=== PATIENT | female | born 1970 | race Caucasian/White ===

== ENCOUNTER 2020-04-21 17:39 | Inpatient (IN) | payer OTHER ==
[~2020-04-21] VITALS: Ht 170.2 cm; Wt 84.0 kg
--- NOTE | 2020-04-21 18:21 | PHYS DOC ---
Past Medical History Past Medical History: A-Fib Past Surgical History: Appendectomy Smoking Status: Never Smoker Alcohol Use: None General Adult EDM: Chief Complaint: CHEST PAIN HPI: HPI: The history was obtained from the patient. Patient is a 49-year-old female with PMH atrial fibrillation, hypertension, anxiety who presents with a chief complaint of shortness of breath. Patient states she has had intermittent chest pain and shortness of breath over the past week. She states that she seems to notice the shortness of breath and chest pain with exertion. She states it seems to improve with rest. She notes a history of atrial fibrillation. She is unsure whether this is paroxysmal or not. She states that the only medicine she takes daily as Bystolic. She denies any missed doses. She does not take any blood thinners. She states that she feels intermittently lightheaded. She does note that she feels lower heart is beating quickly. She denies any syncope. She denies any history of coronary artery disease or invasive cardiac testing. Denies any history of cardiac disease in her family at young age. She denies alcohol or drug abuse. Denies any tobacco abuse. States the chest pain feels like a heaviness. She states it tends to last 10 to 15 minutes and resolved on its own. Patient denies any history of immobilization greater than 48 hours, recent hospitalizations, recent surgery, recent trauma, , oral contraceptive usage, hormone replacement therapy, air travel greater than 8 hours, recent infectious disease, or general deterioration of their overall condition. Review of Systems: Review of Systems: Constitutional: Denies fever or chills. [] Eyes: Denies change in visual acuity. [] HENT: Denies nasal congestion or sore throat. [] Respiratory: Positive shortness of breath Cardiovascular: Positive for lightheadedness, arrhythmia, chest pain GI: Denies abdominal pain, nausea, vomiting, bloody stools or diarrhea. [] : Denies dysuria. [] Musculoskeletal: Denies back pain or joint pain. [] Integument: Denies rash. [] Neurologic: Denies headache, focal weakness or sensory changes. [] Endocrine: Denies polyuria or polydipsia. [] Lymphatic: Denies swollen glands. [] Psychiatric: Denies depression or anxiety. [] Heart Score: HEART Score for Chest Pain: HEART Score for Chest Pain Response (Comments) Value History Moderately Suspicious 1 ECG Nonspecific Repolarizatio 1 Age >45 - < 65 1 Risk Factors 1 or 2 Risk Factors 1 Troponin < Normal Limit 0 Total 4 Risk Factors: Risk Factors: DM, Current or recent (<one month) smoker, HTN, HLP, family history of CAD, obesity. Risk Scores: Score 0 - 3: 2.5% MACE over next 6 weeks - Discharge Home Score 4 - 6: 20.3% MACE over next 6 weeks - Admit for Clinical Observation Score 7 - 10: 72.7% MACE over next 6 weeks - Early Invasive Strategies Current Medications: Current Medications Medications (Trade) Dose Ordered Sig/Chuck Start Time Stop Time Status Last Admin Dose Admin Metoprolol Tartrate (Lopressor Vial) 5 mg 1X ONCE 04/21/20 18:15 04/21/20 18:16 UNV Sodium Chloride 1,000 ml @ 1,000 mls/hr Q1H 04/21/20 18:05 04/21/20 19:04 UNV Physical Exam: PE: Constitutional: Well developed, well nourished, no acute distress, non-toxic appearance. [] HENT: Normocephalic, atraumatic, bilateral external ears normal, oropharynx moist, no oral exudates, nose normal. [] Eyes: PERRLA, EOMI, conjunctiva normal, no discharge. [] Neck: Normal range of motion, no tenderness, supple, no stridor. [] Cardiovascular:Heart rate regular rhythm, no murmur [] Lungs & Thorax: Bilateral breath sounds clear to auscultation [] Abdomen: Bowel sounds normal, soft, no tenderness, no masses, no pulsatile masses. [] Skin: Warm, dry, no erythema, no rash. [] Back: No tenderness, no CVA tenderness. [] Extremities: No tenderness, no cyanosis, no clubbing, ROM intact, no edema. [] Neurologic: Alert and oriented X 3, normal motor function, normal sensory function, no focal deficits noted. [] Psychologic: Affect normal, judgement normal, mood normal. [] Current Patient Data: Labs: Laboratory Tests Test 04/21/20 18:15 White Blood Count 4.5 x10^3/uL Red Blood Count 4.84 x10^6/uL Hemoglobin 16.6 g/dL Hematocrit 47.1 % Mean Corpuscular Volume 97 fL Mean Corpuscular Hemoglobin 34 pg Mean Corpuscular Hemoglobin Concent 35 g/dL Red Cell Distribution Width 12.9 % Platelet Count 171 x10^3/uL Neutrophils (%) (Auto) 42 % Lymphocytes (%) (Auto) 45 % Monocytes (%) (Auto) 9 % Eosinophils (%) (Auto) 3 % Basophils (%) (Auto) 2 % Neutrophils # (Auto) 1.9 x10^3/uL Lymphocytes # (Auto) 2.0 x10^3/uL Monocytes # (Auto) 0.4 x10^3/uL Eosinophils # (Auto) 0.1 x10^3/uL Basophils # (Auto) 0.1 x10^3/uL Sodium Level 143 mmol/L Potassium Level 3.4 mmol/L Chloride Level 104 mmol/L Carbon Dioxide Level 21 mmol/L Anion Gap 18 Blood Urea Nitrogen 6 mg/dL Creatinine 0.7 mg/dL Estimated GFR (Cockcroft-Gault) 88.9 Glucose Level 112 mg/dL Calcium Level 9.1 mg/dL Troponin I Quantitative < 0.017 ng/mL [id number]-Type Natriuretic Peptide 21 pg/mL Thyroid Stimulating Hormone (TSH) 2.936 uIU/mL Ethyl Alcohol Level 381 mg/dL Current Medications Medications (Trade) Dose Ordered Sig/Chuck Route PRN Reason Start Time Stop Time Status Last Admin Dose Admin Metoprolol Tartrate (Lopressor Vial) 5 mg 1X ONCE IVP 04/21/20 18:35 04/21/20 18:36 DC 04/21/20 18:46 Sodium Chloride 1,000 ml @ 1,000 mls/hr Q1H IV 04/21/20 18:35 04/21/20 19:34 DC 04/21/20 18:45 Metoprolol Tartrate (Lopressor Vial) 5 mg 1X ONCE IVP 04/21/20 19:00 04/21/20 19:01 DC 04/21/20 19:11 Metoprolol Tartrate (Lopressor Vial) 5 mg 1X ONCE IVP 04/21/20 20:00 04/21/20 20:01 DC Thiamine HCl 100 mg/Dextrose 51 ml @ 102 mls/hr QHS IV 04/21/20 21:00 Folic Acid (Folic Acid) 1 mg QHS PO 04/21/20 21:00 Aspirin (Aspirin Chewable) 324 mg 1X ONCE PO 04/21/20 20:30 04/21/20 20:31 04/21/20 20:14 Telavancin 750 mg/ Sodium Chloride 150 ml @ 100 mls/hr 1X ONCE IV 04/21/20 20:15 04/21/20 20:25 DC Ondansetron HCl (Zofran) 4 mg PRN Q8HRS PRN IV NAUSEA/VOMITING 04/21/20 20:30 04/22/20 20:29 Sodium Chloride 1,000 ml @ 100 mls/hr Q10H IV 04/21/20 20:19 04/22/20 20:18 Acetaminophen (Tylenol) 650 mg PRN Q4HRS PRN PO FEVER > 100.3'F 04/21/20 20:30 04/22/20 20:29 Sodium Chloride 1,000 ml @ 100 mls/hr 1X ONCE IV 04/21/20 20:30 04/22/20 06:29 Vital Signs: Vital Signs Date Time Temp Pulse Resp B/P (MAP) Pulse Ox O2 Delivery O2 Flow Rate FiO2 04/21/20 17:40 98.7 92 24 139/70 (93) 97 Room Air 98.7 EKG: EKG: EKG consistent with atrial fibrillation with rapid ventricular response. Ventricular rate of 148 bpm. Left axis noted. QTc 454 ms. No acute ischemic changes appreciated. No previous EKG for comparison. [] Radiology/Procedures: Radiology/Procedures: [facility] [address] [place] [address] IMAGING REPORT Signed PATIENT: BOGDAN LOJA LACCOUNT: [id number] : 1970 LOCATION: ER AGE: 49 SEX: F EXAM STATUS: REG ER ORD. PHYSICIAN: LAMINE VELA DO REASON: Chest pain PROCEDURE: PORTABLE CHEST 1V Exam: Chest one view INDICATION: Chest pain TECHNIQUE: Frontal view of the chest Comparisons: None FINDINGS: The cardiomediastinal silhouette and pulmonary vessels are within normal limits. Hazy opacity at the left lung base. No pleural effusion. IMPRESSION: Hazy opacity left lung base may represent effusion, atelectasis and/or pneumonia. Electronically signed by: Brandin Pichardo MD (04/21/2020 6:54 PM) [id number] DICTATED and SIGNED BY: BRANDIN PICHARDO MD DATE: 04/21/201853 [] Course & Med Decision Making: Course & Med Decision Making Pertinent Labs and Imaging studies reviewed. (See chart for details) Patient is a 49-year-old female who presents with chief complaint of shortness of breath and exertional chest pain over the past week. Initial vital signs notable for tachycardia. EKG consistent with atrial fibrillation with RVR. Isabel cortney does report a remote history of this. Based on her medication list she does not take any rate controlling medications or blood thinners routinely. Basic labs were obtained. Patient does have an elevated alcohol level of approximately 300. Slightly elevated hemoglobin. Likely related to dehydration. This is likely the cause of her irregular heartbeat. She was given IV fluids. Initial high-sensitivity troponin negative. TSH unremarkable. Remainder of labs unremarkable. Chest x-ray did show a potential left lower lobe infiltrate. She denies any infectious symptoms including fever, cough, or productive sputum. Antibiotics will be deferred. Her heart rate did improve from approximate 120-100 with 2 doses of 5 mg of metoprolol. She was given full dose aspirin. Anticoagulation will be deferred from the emergency department given the patient likely does not experience chronic atrial fibrillation and this is most likely paroxysmal nature due to dehydration. Patient is agreeable for hospitalization for further work-up of her exertional chest pain. She has remained chest pain-free while in the emergency department. She was started on thiamine and folic acid. Signout given to Dr. Pyle. Hitesh Disclaimer: Hitesh Disclaimer: This electronic medical record was generated, in whole or in part, using a voice recognition dictation system. Departure Departure Disposition: ADMITTED INPATIENT Condition: GOOD Justicifation of Admission Dx: Justifications for Admission: Justification of Admission Dx: Yes Comments: Atrial fibrillation with rapid ventricular response, alcohol intoxication, exertional chest pain, hypertension, dehydration LAMINE VELA DO Apr 21, 2020 18:21
[2020-04-21 18:27] LABS: BASO # 0.1 x10^3/uL (0.0-0.2); BASO % 2 % (0-3); EOS # 0.1 x10^3/uL (0.0-0.7); EOS % 3 % (0-3); HEMATOCRIT 47.1 % (36.0-47.0); HEMOGLOBIN 16.6 g/dL (12.0-15.5); LYMPH % 45 % (24-48); MEAN CORPUSCULAR HEMOGLOBIN 34 pg (25-35); MEAN CORPUSCULAR HGB CONC 35 g/dL (31-37); MEAN CORPUSCULAR VOLUME 97 fL (79-100); MONO # 0.4 x10^3/uL (0.0-1.1); MONO % 9 % (0-9); NEUT # 1.9 x10^3/uL (1.8-7.7); NEUT % 42 % (31-73); PLATELET COUNT 171 x10^3/uL (140-400); RED BLOOD COUNT 4.84 x10^6/uL (3.50-5.40); RED CELL DISTRIBUTION WIDTH 12.9 % (11.5-14.5); WHITE BLOOD COUNT 4.5 x10^3/uL (4.0-11.0)
[2020-04-21 18:34] LABS: CALCIUM 9.1 mg/dL (8.5-10.1); CREATININE 0.7 mg/dL (0.6-1.0); GFR 88.9; POTASSIUM 3.4 mmol/L (3.5-5.1)
[2020-04-21] MEDS ORDERED: IV NORMAL SALINE 1000ML BAG 1,000 ML IV SCH (18:35)
[2020-04-21] MEDS ORDERED: METOPROLOL TARTRATE 5 MG/5 ML VIAL. IVP ONE ×3 (18:35→20:00)
--- NOTE | 2020-04-21 18:57 | RAD ---
Exam: Chest one view INDICATION: Chest pain TECHNIQUE: Frontal view of the chest Comparisons: None FINDINGS: The cardiomediastinal silhouette and pulmonary vessels are within normal limits. Hazy opacity at the left lung base. No pleural effusion. IMPRESSION: Hazy opacity left lung base may represent effusion, atelectasis and/or pneumonia. Electronically signed by: Brandin Dominique MD (04/21/2020 6:54 PM) [id number]
[2020-04-21] MEDS ORDERED: NORMAL SALINE IV ONE (20:15)
[2020-04-21] MEDS ORDERED: TELAVANCIN HCL IV ONE (20:15)
[2020-04-21] MEDS ORDERED: IV NORMAL SALINE 1000ML BAG 1,000 ML IV ONE (20:30)
[2020-04-21] MEDS ORDERED: ASPIRIN CHEWABLE 81 MG TABLET. PO ONE (20:30)
[2020-04-21] MEDS ORDERED: ACETAMINOPHEN 325 MG TABLET. PO PRN (20:30)
[2020-04-21] MEDS ORDERED: ONDANSETRON PF 4 MG/2 ML VIAL. IV PRN (20:30)
[2020-04-21] MEDS: IV NORMAL SALINE 1000ML BAG 1,000 ML IV SCH (20:31)
[2020-04-21] MEDS ORDERED: FOLIC ACID 1 MG TABLET. PO SCH (21:00)
[2020-04-21] MEDS ORDERED: THIAMINE INJ 100 MG in IV DEXTROSE 5% 50 ML IV SCH (21:00)
[2020-04-21 21:30] VITALS: BP 142/82
[2020-04-21] MEDS ORDERED: BYSTOLIC5 MG PO (21:50)
[2020-04-21] MEDS ORDERED: POLYVINYL ALCOHOL 1.4% OPHTH SOLUTION 15ML BOTTLE. OU PRN (22:30)
[2020-04-21] MEDS ORDERED: IBUPROFEN 400 MG TABLET. PO PRN (22:45)
[2020-04-21 23:00] VITALS: BP 142/82
[2020-04-21] MEDS ORDERED: ZOLPIDEM 5 MG TABLET. PO PRN (23:45)
[2020-04-22 02:58] VITALS: BP 129/66
--- NOTE | 2020-04-22 03:03 | EKG ---
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
[2020-04-22 03:12] LABS: BASO # 0.1 x10^3/uL (0.0-0.2); BASO % 2 % (0-3); EOS # 0.2 x10^3/uL (0.0-0.7); EOS % 4 % (0-3); HEMATOCRIT 44.2 % (36.0-47.0); LYMPH # 1.4 x10^3/uL (1.0-4.8); LYMPH % 35 % (24-48); MEAN CORPUSCULAR HEMOGLOBIN 33 pg (25-35); MEAN CORPUSCULAR HGB CONC 34 g/dL (31-37); MEAN CORPUSCULAR VOLUME 98 fL (79-100); MONO # 0.4 x10^3/uL (0.0-1.1); MONO % 9 % (0-9); NEUT # 2.1 x10^3/uL (1.8-7.7); NEUT % 50 % (31-73); PLATELET COUNT 134 x10^3/uL (140-400); RED CELL DISTRIBUTION WIDTH 13.2 % (11.5-14.5); WHITE BLOOD COUNT 4.2 x10^3/uL (4.0-11.0)
[2020-04-22 07:00] VITALS: BP 146/88
--- NOTE | 2020-04-22 07:58 | PDOC1 ---
History and Physical Date of Admission: Date of Admission DATE: 04/22/20 TIME: 07:51 Chief Complaint: Chief Complain: Chest pain History of Present Illness: HPI: 49-year-old male with past medical history of atrial fibrillation, hypertension, anxiety who comes in with complaints of shortness of breath and chest pain. Patient states that she was at home when she began to have symptoms while she wa s getting her mail. Patient reports left-sided chest pain that radiates towards the left shoulder with scale of 8 out of 10, patient pain will last about 10 to 15 minutes and resolved on its own. There are no alleviating factors. Patient does deal with a history of anxiety but she does not take any medications for this. She has been counseled on meditation and relaxation techniques. She denies any syncope. She denies any history of coronary artery disease or invasive cardiac testing. Denies any history of cardiac disease in her family at young age. She denies alcohol or drug abuse. Denies any tobacco abuse. States the chest pain feels like a heaviness. She states it tends to last 10 to 15 minutes and resolved on its own. Patient denies any history of immobilization greater than 48 hours, recent hospitalizations, recent surgery, recent trauma, , oral contraceptive usage, hormone replacement therapy, air travel greater than 8 hours, recent infectious disease, or general deterioration of their overall condition. Past Medical/Surgical History: PMH/PSH: Past Medical History: A-Fib Past Surgical History: Appendectomy Allergies: Allergies: Coded Allergies: No Known Drug Allergies (Unverified , 04/21/20) Family History: Family History: Reviewed and none reported Social History: Social History: Smoking Status: Never Smoker Alcohol Use: None Current Medications: Current Medications Current Medications Metoprolol Tartrate (Lopressor Vial) 5 mg 1X ONCE IVP Last administered on 04/21/20at 18:46; Start 04/21/20 at 18:35; Stop 04/21/20 at 18:36; Status DC Sodium Chloride 1,000 ml @ 1,000 mls/hr Q1H IV Last administered on 04/21/20at 18:45; Start 04/21/20 at 18:35; Stop 04/21/20 at 19:34; Status DC Metoprolol Tartrate (Lopressor Vial) 5 mg 1X ONCE IVP Last administered on 04/21/20at 19:11; Start 04/21/20 at 19:00; Stop 04/21/20 at 19:01; Status DC Metoprolol Tartrate (Lopressor Vial) 5 mg 1X ONCE IVP ; Start 04/21/20 at 20:00; Stop 04/21/20 at 20:01; Status DC Thiamine HCl 100 mg/Dextrose 51 ml @ 102 mls/hr QHS IV Last administered on 04/21/20at 20:31; Start 04/21/20 at 21:00 Folic Acid (Folic Acid) 1 mg QHS PO Last administered on 04/21/20at 20:32; Start 04/21/20 at 21:00 Aspirin (Aspirin Chewable) 324 mg 1X ONCE PO Last administered on 04/21/20at 20:14; Start 04/21/20 at 20:30; Stop 04/21/20 at 20:31; Status DC Telavancin 750 mg/ Sodium Chloride 150 ml @ 100 mls/hr 1X ONCE IV ; Start 04/21/20 at 20:15; Stop 04/21/20 at 20:25; Status DC Ondansetron HCl (Zofran) 4 mg PRN Q8HRS PRN IV NAUSEA/VOMITING; Start 04/21/20 at 20:30; Stop 04/22/20 at 20:29 Sodium Chloride 1,000 ml @ 100 mls/hr Q10H IV Last administered on 04/21/20at 20:31; Start 04/21/20 at 20:19; Stop 04/22/20 at 20:18 Acetaminophen (Tylenol) 650 mg PRN Q4HRS PRN PO FEVER > 100.3'F; Start 04/21/20 at 20:30; Stop 04/22/20 at 20:29 Sodium Chloride 1,000 ml @ 100 mls/hr 1X ONCE IV ; Start 04/21/20 at 20:30; Stop 04/22/20 at 06:29; Status DC Artificial Tears (Artificial Tears) 1 drop PRN Q15MIN PRN OU DRY EYE; Start 04/21/20 at 22:30 Ibuprofen (Motrin) 800 mg PRN Q6HRS PRN PO INFLAMMATION Last administered on 04/21/20at 23:00; Start 04/21/20 at 22:45 Zolpidem Tartrate (Ambien) 5 mg PRN QHS PRN PO INSOMNIA Last administered on 04/21/20at 23:45; Start 04/21/20 at 23:45 Active Scripts Active Reported Bystolic (Nebivolol) 5 Mg Tablet 5 Mg PO DAILY ROS: Review of Systems Review of System REVIEW OF SYSTEMS: GENERAL: Denies weakness SKIN: No bruising, hair changes or rashes. EYES: No blurred, double or loss of vision. NOSE AND THROAT: No history of nosebleeds, hoarseness or sore throat. HEART: No history of palpitations, chest pain or shortness of breath on exertion. LUNGS: Denies cough, hemoptysis, wheezing or shortness of breath. GASTROINTESTINAL: Denies changes in appetite, nausea, vomiting, diarrhea or constipation. GENITOURINARY: No history of frequency, urgency, hesitancy or nocturia. NEUROLOGIC: Denies history of numbness, tingling, or tremor. PSYCHIATRIC: No history of panic, anxiety or depression. ENDOCRINE: No history of heat or cold intolerance, polyuria or polydipsia. EXTREMITIES: Denies joint pain, pain on walking or stiffness. Physical Exam: Vital Signs: Vital Signs Date Time Temp Pulse Resp B/P (MAP) Pulse Ox O2 Delivery O2 Flow Rate FiO2 04/22/20 07:00 98.4 85 18 146/88 (107) 97 Room Air 98.4 Physcial Exam: GEN: No apparent distress. Alert and oriented HEENT: Normal cephalic, atraumatic, external auditory canals are patent EYES: Extraocular muscles are intact, pupil are equally round and reactive to light and accommodation MUSCULOSKELETAL: Well developed , well nourished, good range of motion ENDOCRINE: No thyromegaly was palpated LYMPHATICS: No cervical chain or axillary nodes were noted HEMATOPOIETIC: No bruising NECK: Supple, no JVD, no thyromegaly was noted LUNGS: Clear to auscultation in all lung [place] without rhonchi or wheezing HEART: RRR, S!, S2 present. Peripheral pulses intact, no obvious murmurs noted ABDOMEN: Soft, nontender. Positive bowel sounds, no organomegaly, normal bowel sounds EXTREMITIES: Without clubbing, cyanosis, or edema. Pedal pulses intact. Negative Homans sign NEUROLOGIC: Normal speech and tone. A&O x 3, moves all extremities, no obvious focal deficits PSYCHIATRIC: Normal affect, normal mood. Stable SKIN: No ulcerations or rashes, good skin turgor, no jaundice VASCULAR: Good capillary refill, neurovascular bundle appears to be intact Labs: Labs: Laboratory Tests Test 04/21/20 18:15 04/21/20 23:30 04/22/20 02:20 White Blood Count 4.5 x10^3/uL (4.0-11.0) 4.2 x10^3/uL (4.0-11.0) Red Blood Count 4.84 x10^6/uL (3.50-5.40) 4.50 x10^6/uL (3.50-5.40) Hemoglobin 16.6 g/dL (12.0-15.5) 15.0 g/dL (12.0-15.5) Hematocrit 47.1 % (36.0-47.0) 44.2 % (36.0-47.0) Mean Corpuscular Volume 97 fL (79-100) 98 fL (79-100) Mean Corpuscular Hemoglobin 34 pg (25-35) 33 pg (25-35) Mean Corpuscular Hemoglobin Concent 35 g/dL (31-37) 34 g/dL (31-37) Red Cell Distribution Width 12.9 % (11.5-14.5) 13.2 % (11.5-14.5) Platelet Count 171 x10^3/uL (140-400) 134 x10^3/uL (140-400) Neutrophils (%) (Auto) 42 % (31-73) 50 % (31-73) Lymphocytes (%) (Auto) 45 % (24-48) 35 % (24-48) Monocytes (%) (Auto) 9 % (0-9) 9 % (0-9) Eosinophils (%) (Auto) 3 % (0-3) 4 % (0-3) Basophils (%) (Auto) 2 % (0-3) 2 % (0-3) Neutrophils # (Auto) 1.9 x10^3/uL (1.8-7.7) 2.1 x10^3/uL (1.8-7.7) Lymphocytes # (Auto) 2.0 x10^3/uL (1.0-4.8) 1.4 x10^3/uL (1.0-4.8) Monocytes # (Auto) 0.4 x10^3/uL (0.0-1.1) 0.4 x10^3/uL (0.0-1.1) Eosinophils # (Auto) 0.1 x10^3/uL (0.0-0.7) 0.2 x10^3/uL (0.0-0.7) Basophils # (Auto) 0.1 x10^3/uL (0.0-0.2) 0.1 x10^3/uL (0.0-0.2) Sodium Level 143 mmol/L (136-145) 142 mmol/L (136-145) Potassium Level 3.4 mmol/L (3.5-5.1) 3.6 mmol/L (3.5-5.1) Chloride Level 104 mmol/L (98-107) 106 mmol/L (98-107) Carbon Dioxide Level 21 mmol/L (21-32) 24 mmol/L (21-32) Anion Gap 18 (6-14) 12 (6-14) Blood Urea Nitrogen 6 mg/dL (7-20) 8 mg/dL (7-20) Creatinine 0.7 mg/dL (0.6-1.0) 0.7 mg/dL (0.6-1.0) Estimated GFR (Cockcroft-Gault) 88.9 88.9 Glucose Level 112 mg/dL (70-99) 87 mg/dL (70-99) Calcium Level 9.1 mg/dL (8.5-10.1) 8.2 mg/dL (8.5-10.1) Troponin I Quantitative < 0.017 ng/mL (0.000-0.055) < 0.017 ng/mL (0.000-0.055) < 0.017 ng/mL (0.000-0.055) EK-Lvk-B-Type Natriuretic Peptide 21 pg/mL (0-124) Thyroid Stimulating Hormone (TSH) 2.936 uIU/mL (0.358-3.74) Ethyl Alcohol Level 381 mg/dL (0-10) Laboratory Tests Test 04/21/20 18:15 04/21/20 23:30 04/22/20 02:20 White Blood Count 4.5 x10^3/uL (4.0-11.0) 4.2 x10^3/uL (4.0-11.0) Red Blood Count 4.84 x10^6/uL (3.50-5.40) 4.50 x10^6/uL (3.50-5.40) Hemoglobin 16.6 g/dL (12.0-15.5) 15.0 g/dL (12.0-15.5) Hematocrit 47.1 % (36.0-47.0) 44.2 % (36.0-47.0) Mean Corpuscular Volume 97 fL (79-100) 98 fL (79-100) Mean Corpuscular Hemoglobin 34 pg (25-35) 33 pg (25-35) Mean Corpuscular Hemoglobin Concent 35 g/dL (31-37) 34 g/dL (31-37) Red Cell Distribution Width 12.9 % (11.5-14.5) 13.2 % (11.5-14.5) Platelet Count 171 x10^3/uL (140-400) 134 x10^3/uL (140-400) Neutrophils (%) (Auto) 42 % (31-73) 50 % (31-73) Lymphocytes (%) (Auto) 45 % (24-48) 35 % (24-48) Monocytes (%) (Auto) 9 % (0-9) 9 % (0-9) Eosinophils (%) (Auto) 3 % (0-3) 4 % (0-3) Basophils (%) (Auto) 2 % (0-3) 2 % (0-3) Neutrophils # (Auto) 1.9 x10^3/uL (1.8-7.7) 2.1 x10^3/uL (1.8-7.7) Lymphocytes # (Auto) 2.0 x10^3/uL (1.0-4.8) 1.4 x10^3/uL (1.0-4.8) Monocytes # (Auto) 0.4 x10^3/uL (0.0-1.1) 0.4 x10^3/uL (0.0-1.1) Eosinophils # (Auto) 0.1 x10^3/uL (0.0-0.7) 0.2 x10^3/uL (0.0-0.7) Basophils # (Auto) 0.1 x10^3/uL (0.0-0.2) 0.1 x10^3/uL (0.0-0.2) Sodium Level 143 mmol/L (136-145) 142 mmol/L (136-145) Potassium Level 3.4 mmol/L (3.5-5.1) 3.6 mmol/L (3.5-5.1) Chloride Level 104 mmol/L (98-107) 106 mmol/L (98-107) Carbon Dioxide Level 21 mmol/L (21-32) 24 mmol/L (21-32) Anion Gap 18 (6-14) 12 (6-14) Blood Urea Nitrogen 6 mg/dL (7-20) 8 mg/dL (7-20) Creatinine 0.7 mg/dL (0.6-1.0) 0.7 mg/dL (0.6-1.0) Estimated GFR (Cockcroft-Gault) 88.9 88.9 Glucose Level 112 mg/dL (70-99) 87 mg/dL (70-99) Calcium Level 9.1 mg/dL (8.5-10.1) 8.2 mg/dL (8.5-10.1) Troponin I Quantitative < 0.017 ng/mL (0.000-0.055) < 0.017 ng/mL (0.000-0.055) < 0.017 ng/mL (0.000-0.055) XH-Syf-Z-Type Natriuretic Peptide 21 pg/mL (0-124) Thyroid Stimulating Hormone (TSH) 2.936 uIU/mL (0.358-3.74) Ethyl Alcohol Level 381 mg/dL (0-10) Images: Images All images and reports were reviewed by me Exam: Chest one view INDICATION: Chest pain TECHNIQUE: Frontal view of the chest Comparisons: None FINDINGS: The cardiomediastinal silhouette and pulmonary vessels are within normal limits. Hazy opacity at the left lung base. No pleural effusion. IMPRESSION: Hazy opacity left lung base may represent effusion, atelectasis and/or pneumonia. Assessment/Plan Assessment/Plan Chest pain rule out ACS Atrial fibrillation with RVR EtOH use Erythrocytosis due to likely dehydration Thrombocytopenia Admit to medicine Pending cardiology evaluation Continue metoprolol and aspirin per cardiology Pending echo Continue telemetry monitoring IV metoprolol as needed for heart rate greater than 110 Lovenox for DVT prophylaxis Ambulation and SCD Regular diet Full code Discussed with RN and SW Repeat CBC tomorrow if platelets low again -consider PBS Dispo: Pending cardiology evaluation Justicifation of Admission Dx: Justifications for Admission: Justification of Admission Dx: Yes JOSE MILLER MD Apr 22, 2020 07:58
[2020-04-22 09:55] LABS: ALBUMIN 3.4 g/dL (3.4-5.0); ALBUMIN/GLOBULIN RATIO 1.1 (1.0-1.7); CALCIUM 8.1 mg/dL (8.5-10.1); CREATININE 0.7 mg/dL (0.6-1.0); GFR 88.9; MAGNESIUM 1.6 mg/dL (1.8-2.4); POTASSIUM 3.7 mmol/L (3.5-5.1); TOTAL BILIRUBIN 0.4 mg/dL (0.2-1.0); TOTAL PROTEIN 6.6 g/dL (6.4-8.2)
[2020-04-22 09:56] LABS: CHOLESTEROL/HDL RATIO 2.1
[2020-04-22] MEDS ORDERED: MAGNESIUM SULFATE 2GM 50 ML IV ONE (10:15)
--- NOTE | 2020-04-22 10:27 | NUR ---
SS following for discharge planning. SS reviewed pt chart and discussed with pt RN. Pt self pay. Pt is from home and is currently on room air. PAT team referral made for ETOH. Davidson from PAT team coming to meet with pt. SS will continue to follow for discharge planning.
--- NOTE | 2020-04-22 10:28 | PDOC2 ---
LOUANN ERNANDEZ CREW CALLER 04/22/20 1028: CARDIAC CONSULT DATE OF CONSULT Date of Consult DATE: 04/22/20 TIME: 10:00 REASON FOR CONSULT Reason for Consult: AFIB RVR, chest pain REFERRING PHYSICIAN Referring Physician: Karlene SOURCE Source: Chart review, Patient HISTORY OF PRESENT ILLNESS HISTORY OF PRESENT ILLNESS This is a pleasant 49 yo female admitted for complains of chest pain and palpitations. Her symptoms started yesterday. Positive for some SOA as well and dizziness. Pt does report an episode of watery stool as well. No hx of CAD but upon admission she was noted with AFIB RVR. She also binge with alcohol prior drinking about 1 pint of vodka. She does see Dr. Riley at [facility] cardiology and AFIB was noted on her about 2 yrs ago. She does not take ASA. Denies any PUD or bleeding issues. She is significantly stressed out between work and her spouse but denies any domestic violence. She has gained about 30 pounds in the last yr and she was told that she may need to get tested for JD as she has been suffering from insomnia and also has been anxious. She binge with alcohol about twice a week thinking that this may help curb her stress. Her son also about 4 yrs ago but reported that she doing ok in regards to the latter and denies being depressed. No recent stressed test and denies any [place] nor exertional CP until she started having this palpitations. PAST MEDICAL HISTORY Cardiovascular: AFIB Psych: Anxiety PAST SURGICAL HISTORY Past Surgical History: Tubal Ligation FAMILY HISTORY Family History: Coronary Artery Disease (sister) SOCIAL HISTORY Smoke: No ALCOHOL: heavy Drugs: None Lives: with Family CURRENT MEDICATIONS CURRENT MEDICATIONS Current Medications Medications (Trade) Dose Ordered Sig/Chuck Route PRN Reason Start Time Stop Time Status Last Admin Dose Admin Metoprolol Tartrate (Lopressor Vial) 5 mg 1X ONCE IVP 04/21/20 18:35 04/21/20 18:36 DC 04/21/20 18:46 Sodium Chloride 1,000 ml @ 1,000 mls/hr Q1H IV 04/21/20 18:35 04/21/20 19:34 DC 04/21/20 18:45 Metoprolol Tartrate (Lopressor Vial) 5 mg 1X ONCE IVP 04/21/20 19:00 04/21/20 19:01 DC 04/21/20 19:11 Thiamine HCl 100 mg/Dextrose 51 ml @ 102 mls/hr QHS IV 04/21/20 21:00 04/21/20 20:31 Folic Acid (Folic Acid) 1 mg QHS PO 04/21/20 21:00 04/21/20 20:32 Aspirin (Aspirin Chewable) 324 mg 1X ONCE PO 04/21/20 20:30 04/21/20 20:31 DC 04/21/20 20:14 Sodium Chloride 1,000 ml @ 100 mls/hr Q10H IV 04/21/20 20:19 04/22/20 20:18 04/21/20 20:31 Ibuprofen (Motrin) 800 mg PRN Q6HRS PRN PO INFLAMMATION 04/21/20 22:45 04/21/20 23:00 Zolpidem Tartrate (Ambien) 5 mg PRN QHS PRN PO INSOMNIA 04/21/20 23:45 04/21/20 23:45 ALLERGIES ALLERGIES: Coded Allergies: No Known Drug Allergies (Unverified , 04/21/20) ROS Review of System 14 point ROS evaluated with pertinent positives noted per HPI PHYSICAL EXAM General: Alert, Oriented X3, Cooperative, No acute distress HEENT: Atraumatic, Mucous membr. moist/pink Lungs: Clear to auscultation, Normal air movement Heart: Regular rate (SR), Normal S1, Normal S2, No murmurs Abdomen: Soft, No tenderness Extremities: No cyanosis, No edema Skin: No breakdown, No significant lesion Neuro: Sensation intact Psych/Mental Status: Mental status NL, Mood NL MUSCULOSKELETAL: Osteoarthritic changes both hands VITALS/I&O VITALS/I&O: Vital Signs Date Time Temp Pulse Resp B/P (MAP) Pulse Ox O2 Delivery O2 Flow Rate FiO2 04/22/20 07:00 98.4 85 18 146/88 (107) 97 Room Air 98.4 I & O 04/21/20 04/21/20 04/22/20 15:00 23:00 07:00 Intake Total 1000 ml 650 ml Output Total 250 ml Balance 1000 ml 400 ml LABS Lab: Laboratory Tests Test 04/21/20 18:15 04/21/20 23:30 04/22/20 02:20 White Blood Count 4.5 x10^3/uL (4.0-11.0) 4.2 x10^3/uL (4.0-11.0) Red Blood Count 4.84 x10^6/uL (3.50-5.40) 4.50 x10^6/uL (3.50-5.40) Hemoglobin 16.6 g/dL (12.0-15.5) H 15.0 g/dL (12.0-15.5) Hematocrit 47.1 % (36.0-47.0) H 44.2 % (36.0-47.0) Mean Corpuscular Volume 97 fL (79-100) 98 fL (79-100) Mean Corpuscular Hemoglobin 34 pg (25-35) 33 pg (25-35) Mean Corpuscular Hemoglobin Concent 35 g/dL (31-37) 34 g/dL (31-37) Red Cell Distribution Width 12.9 % (11.5-14.5) 13.2 % (11.5-14.5) Platelet Count 171 x10^3/uL (140-400) 134 x10^3/uL (140-400) L Neutrophils (%) (Auto) 42 % (31-73) 50 % (31-73) Lymphocytes (%) (Auto) 45 % (24-48) 35 % (24-48) Monocytes (%) (Auto) 9 % (0-9) 9 % (0-9) Eosinophils (%) (Auto) 3 % (0-3) 4 % (0-3) H Basophils (%) (Auto) 2 % (0-3) 2 % (0-3) Neutrophils # (Auto) 1.9 x10^3/uL (1.8-7.7) 2.1 x10^3/uL (1.8-7.7) Lymphocytes # (Auto) 2.0 x10^3/uL (1.0-4.8) 1.4 x10^3/uL (1.0-4.8) Monocytes # (Auto) 0.4 x10^3/uL (0.0-1.1) 0.4 x10^3/uL (0.0-1.1) Eosinophils # (Auto) 0.1 x10^3/uL (0.0-0.7) 0.2 x10^3/uL (0.0-0.7) Basophils # (Auto) 0.1 x10^3/uL (0.0-0.2) 0.1 x10^3/uL (0.0-0.2) Sodium Level 143 mmol/L (136-145) 143 mmol/L (136-145) Potassium Level 3.4 mmol/L (3.5-5.1) L 3.7 mmol/L (3.5-5.1) Chloride Level 104 mmol/L (98-107) 106 mmol/L (98-107) Carbon Dioxide Level 21 mmol/L (21-32) 25 mmol/L (21-32) Anion Gap 18 (6-14) H 12 (6-14) Blood Urea Nitrogen 6 mg/dL (7-20) L 8 mg/dL (7-20) Creatinine 0.7 mg/dL (0.6-1.0) 0.7 mg/dL (0.6-1.0) Estimated GFR (Cockcroft-Gault) 88.9 88.9 Glucose Level 112 mg/dL (70-99) H 83 mg/dL (70-99) Calcium Level 9.1 mg/dL (8.5-10.1) 8.1 mg/dL (8.5-10.1) L Troponin I Quantitative < 0.017 ng/mL (0.000-0.055) < 0.017 ng/mL (0.000-0.055) < 0.017 ng/mL (0.000-0.055) UG-Onf-D-Type Natriuretic Peptide 21 pg/mL (0-124) Thyroid Stimulating Hormone (TSH) 2.936 uIU/mL (0.358-3.74) Ethyl Alcohol Level 381 mg/dL (0-10) H BUN/Creatinine Ratio 11 (6-20) Magnesium Level 1.6 mg/dL (1.8-2.4) L Total Bilirubin 0.4 mg/dL (0.2-1.0) Aspartate Amino Transferase (AST) 60 U/L (15-37) H Alanine Aminotransferase (ALT) 39 U/L (14-59) Alkaline Phosphatase 120 U/L (46-116) H Total Protein 6.6 g/dL (6.4-8.2) Albumin 3.4 g/dL (3.4-5.0) Albumin/Globulin Ratio 1.1 (1.0-1.7) Triglycerides Level 166 mg/dL (0-150) H Cholesterol Level 189 mg/dL (0-200) LDL Cholesterol, Calculated 68 mg/dL (0-100) VLDL Cholesterol, Calculated 33 mg/dL (0-40) Non-HDL Cholesterol Calculated 101 mg/dL (0-129) HDL Cholesterol 88 mg/dL (40-60) H Cholesterol/HDL Ratio 2.1 Laboratory Tests 04/21/20 18:15 04/22/20 02:20 Laboratory Tests 04/21/20 18:15 04/22/20 02:20 ASSESSMENT/PLAN ASSESSMENT/PLAN 1. Chest pain: due to AFIB 2. AFIB RVR; likely precipitated by binge alcoholism. Paroxsymal by hx. uses bystolic. Back in SR 3. Binge alcoholism 4. Anxiety disorder/stress 5. Possible JD 6. Hypomagnesemia Recommendations 1. TTE, TSH, lipids 2. Replace Mg. DC home bystolic and will place on Metoprolol IR. ASA for stroke prevention CHA2-DS2.Vasc 1 3. [facility] as an outpt, will defer to her [facility] manager site Dr. Riley 4. Counselled re alcohol cessation. Will need outpt counselling in regards to ETOH and anxiety. 5. Could potentially DC this afternoon if TTE is unremarkable. 6. Consider for outpt stress test LORENZA DOWELL MD 04/22/20 2141: CARDIAC CONSULT ASSESSMENT/PLAN ASSESSMENT/PLAN Patient seen and examined. Agree with BAND TIER's assessment and plan, Patient with PAF presenting with AF RVR prob precipitated by binge alcohol drinking 2D echo showed normal LV She is presently back in SR Continue ASA and plan outpatient event monitor to assess arrhythmia burden Importance of abstinence from alcohol use reemphasized Thank you for your consultation LOUANN ERNANDEZ APRN Apr 22, 2020 10:28 LORENZA DOWELL MD Apr 22, 2020 21:41
[2020-04-22] MEDS: IV NORMAL SALINE 1000ML BAG 1,000 ML IV SCH (10:31)
[2020-04-22 11:00] VITALS: BP 139/75
[2020-04-22] MEDS ORDERED: METOPROLOL TART IMMED RELEASE 25 MG TABLET. PO SCH (11:00)
[2020-04-22] MEDS ORDERED: ASPIRIN ENTERIC COATED 81 MG TABLET.DR. PO SCH (12:00)
[2020-04-22 13:25] LABS: AMPHETAMINE/METHAMPHETAMINE NEG (NEG); BARBITURATES NEG (NEG); BENZODIAZEPINES NEG (NEG); CANNABINOIDS NEG (NEG); COCAINE NEG (NEG); METHADONE NEG (NEG); OPIATES NEG (NEG); PHENCYCLIDINE NEG (NEG)
[2020-04-22 15:00] VITALS: BP 125/72
--- NOTE | 2020-04-22 15:23 | CARD ---
MR#: [id number] Date of Study: 04/22/2020 Ordering Physician: LOUANN ERNANDEZ, Referring Physician: LOUANN ERNANDEZ, Tech: Cora Humphrey THOMAS APPROVED REPORT EXAM: Two-dimensional and M-mode echocardiogram with Doppler and color Doppler. Other Information Quality : Good Rhythm : NSR INDICATION Atrial Fibrillation 2D DIMENSIONS RVDd3.0 (2.9-3.5cm)Left Atrium(2D)3.5 (1.6-4.0cm) IVSd1.0 (0.7-1.1cm)Aortic Root(2D)3.3 (2.0-3.7cm) LVDd5.3 (3.9-5.9cm)LVOT Diameter2.0 (1.8-2.4cm) PWd1.0 (0.7-1.1cm)LVDs2.9 (2.5-4.0cm) FS (%) 30.0 %SV104.0 ml LVEF(%)60.0 (>50%) Aortic Valve AoV Peak Hammad.136.9cm/sAoV VTI28.0cm AO Peak GR.7.5mmHgLVOT Peak Hammad.109.5cm/s LVOT VTI 25.59cmAO Mean GR.4mmHg FRANCES (VMAX)2.96lt3WBX (VTI)2.94cm2 Mitral Valve MV E Hhlntglx13.7cm/sMV DECEL [id number] MV A Ogbuqltj98.0cm/sMV NUX75pu E/A Ratio0.9MVA (PHT)2.75cm2 TDI E/Lateral E'8.5E/Medial E'11.1 Tricuspid Valve TR P. Wwxesajg621mk/sRAP FXWNMKQI9pxPw TR Peak Gr.13ziSeRNGB18rcFr Pulmonary Vein S1 Vkotnbsr55.9cm/sD2 Ovwswvmp83.0cm/s LEFT VENTRICLE The left ventricle is normal size. There is normal left ventricular wall thickness. The left ventricu lar systolic function is normal and the ejection fraction is within normal range. The Ejection Fracti on is 55-60%. There is normal LV segmental wall motion. The left ventricular diastolic function and f illing is normal for age. RIGHT VENTRICLE The right ventricle is normal size. The right ventricular systolic function is normal. ATRIA The left atrium size is normal. The right atrium size is normal. The interatrial septum is intact wit h no evidence for an atrial septal defect or patent foramen ovale as noted on 2-D or Doppler imaging. AORTIC VALVE The aortic valve is normal in structure and function. Doppler and Color Flow revealed no significant aortic regurgitation. There is no significant aortic valvular stenosis. MITRAL VALVE The mitral valve is normal in structure and function. There is no evidence of mitral valve prolapse. There is no mitral valve stenosis. Doppler and Color-flow revealed trace mitral regurgitation. TRICUSPID VALVE The tricuspid valve is normal in structure and function. Doppler and Color Flow revealed trace tricus pid regurgitation. The PA pressure was estimated at 22 mmHg. There is no tricuspid valve stenosis. PULMONIC VALVE The pulmonic valve is not well visualized. Doppler and Color Flow revealed trace pulmonic valvular re gurgitation. There is no pulmonic valvular stenosis. GREAT VESSELS The aortic root is normal in size. The ascending aorta is mildly dilated at 3.5 cm. The IVC is normal in size and collapses >50% with inspiration. PERICARDIAL EFFUSION There is no evidence of significant pericardial effusion. Critical Notification Critical Value: No <Conclusion> The left ventricular systolic function is normal and the ejection fraction is within normal range. Th e Ejection Fraction is 55-60%. There is normal LV segmental wall motion. The ascending aorta is mildly dilated at 3.5 cm. Incidental note is made of a large cystic structure in the liver (not adequately evaluated on this st udy), consider dedicated abdominal imaging. Signed by : Barney Neri, Electronically Approved : 04/22/2020 15:23:20
--- NOTE | 2020-04-22 17:30 | DISCH ---
DISCHARGE INSTRUCTIONS Condition on Discharge Condition on Discharge: Stable Activity After Discharge Activity Instructions for Disc: No restrictions Diet after Discharge Diet after Discharge: Cardiac Contacting the DR. after DC Call your doctor for: If your condition worsens (MRI of the) Follow-Up Follow up with: PCP regarding incidental liver cyst finding Follow Up With: Follow-up with cardiology JOSE MILLER MD Apr 22, 2020 17:30
[2020-04-22] MEDS ORDERED: ASPI-886 PO (17:32)
[2020-04-22] MEDS ORDERED: METO25TA4 PO (17:32)
--- NOTE | 2020-04-22 17:59 | NUR ---
Discharge Note: BOGDAN LOJA Discharge instructions and discharge home medications reviewed with Patient and a copy given. All questions have been answered and understanding verbalized. The following instructions and handouts were given: afib, alcohol withdrawal Discontinued lines and drains: IV catheter removed intact. Tele monitor removed. Patient discharged to Home with self care via wheelchair. Pt remided to follow up with cardiology for a outpt heart montior.
--- NOTE | 2020-04-22 18:15 | PDOC3 ---
[facility]-Discharge Summary Date of Admission: Date of Admission: Apr 21, 2020 Date of Discharge: Date of Discharge: Apr 22, 2020 Admission Diagnosis: Admitting Diagnosis: Chest pain rule out ACS Atrial fibrillation with RVR EtOH use Erythrocytosis due to likely dehydration Thrombocytopenia Discharge Diagnosis: Discharge Diagnosis: Chest pain rule out ACS Atrial fibrillation with RVR EtOH use Erythrocytosis due to likely dehydration Thrombocytopenia Incidental liver cyst finding on echo Consults: Consults: Cardiology Hospital Course: Hospital Course: 49-year-old male with past medical history of atrial fibrillation, hypertension, anxiety who comes in with complaints of shortness of breath and chest pain. Patient states that she was at home when she began to have symptoms while she was getting her mail. Patient reports left-sided chest pain that radiates towards the left shoulder with scale of 8 out of 10, patient pain will last about 10 to 15 minutes and resolved on its own. There are no alleviating factors. Patient does deal with a history of anxiety but she does not take any medications for this. She has been counseled on meditation and relaxation techniques. She denies any syncope. She denies any history of coronary artery disease or invasive cardiac testing. Denies any history of cardiac disease in her family at young age. She denies alcohol or drug abuse. Denies any tobacco abuse. States the chest pain feels like a heaviness. She states it tends to last 10 to 15 minutes and resolved on its own. Patient was evaluate by cardiology and echo was completed. They recommended to stay on aspirin and metoprolol upon discharge. Echocardiogram was negative for any structural causes for her atrial fibrillation. She was also evaluated by a psychiatry services and and instructed her to follow-up as an outpatient for counseling services and consideration for anti-anxiety medications if needed. Echocardiogram did show a incidental finding of a liver cyst. Patient was instructed to follow-up with PCP for outpatient imaging. The rest of the hospital course was uneventful Physical exam on day of discharge: GEN: Alert and oriented. Patient appears slightly anxious HEENT: Normal cephalic, atraumatic, external auditory canals are patent NECK: Supple, no JVD, no thyromegaly was noted LUNGS: Bilateral crackles HEART: RRR, S1, S2 present. Peripheral pulses intact, no obvious murmurs noted ABDOMEN: Soft, nontender. Positive bowel sounds, no organomegaly, normal bowel sounds EXTREMITIES: Without clubbing, cyanosis, or edema. Pedal pulses intact. Neg ative Homans sign Disposition: Disposition/Orders: D/C to Home Activity: Activity: Resume previous activity Diet: Diet: Cardiac Medications: Home Meds Active Scripts Aspirin (ASPIRIN EC) 81 Mg Tablet.dr, 81 MG PO DAILYWBKFT for atrial fibrillation/ clots for 30 Days, #30 TAB.SR Prov:JOSE MILLER MD 04/22/20 Metoprolol Tartrate (METOPROLOL TARTRATE) 25 Mg Tablet, 25 MG PO BID for heart rate for 30 Days, #60 TAB Prov:JOSE MILLER MD 04/22/20 Discontinued Reported Medications Nebivolol Hcl (BYSTOLIC) 5 Mg Tablet, 5 MG PO DAILY for htn, TAB 04/21/20 Scheduled Aspirin (Aspirin Ec), 81 MG PO DAILYWBKFT Metoprolol Tartrate (Metoprolol Tartrate), 25 MG PO BID Discontinued Medications Nebivolol Hcl (Bystolic), 5 MG PO DAILY, (Reported) Total Time: Total Time: Total time spent was 20 minutes in preparing scripts, discharge planning with SWI and RN and preparing this discharge summary Justicifation of Admission Dx: Justifications for Admission: Justification of Admission Dx: Yes JOSE MILLER MD Apr 22, 2020 18:15
[2020-04-27] MEDS ORDERED: THIAMINE INJ 100 MG in IV DEXTROSE 5% 50 ML IV SCH (09:00)
== END 2020-04-22 18:10 | disposition home or self-care (01) | DRG 310 ==
LOC: EEVIPCON 17:39 → ER 17:39 → 2 NORTH 20:20
PROVIDERS: ADMIT Internal Medicine; ATTEND Internal Medicine
PROC: HZ31ZZZ Individual Counseling for Substance Abuse Treatment, Behavioral (ICD-10-PCS; 2020-04-21)
PROC: B246ZZZ Ultrasonography of Right and Left Heart (ICD-10-PCS; principal; 2020-04-22)
DX: I48.0 Paroxysmal atrial fibrillation (principal); F41.9 Anxiety disorder, unspecified; I10 Essential (primary) hypertension; D69.6 Thrombocytopenia, unspecified; D75.1 Secondary polycythemia; E83.42 Hypomagnesemia; F10.20 Alcohol dependence, uncomplicated; E86.0 Dehydration; K76.89 Other specified diseases of liver; Z98.51 Tubal ligation status; Z90.49 Acquired absence of other specified parts of digestive tract; Z82.49 Family history of ischemic heart disease and other diseases of the circulatory system; Z71.89 Other specified counseling; F10.229 Alcohol dependence with intoxication, unspecified; Y90.8 Blood alcohol level of 240 mg/100 ml or more
CPT/HCPCS: 36415; 71045; 80048; 80053; 80061; 80307; 83735; 83880; 84443; 84484; 85025; 93005; 93306; 96361; 96365; 96375; 99285; G0480; J3411; J3475; J3490; J7030; J7060; G0378

== ENCOUNTER 2020-11-25 10:31 | Observation (INO) | payer OTHER ==
[~2020-11-25] VITALS: Ht 170.2 cm; Wt 92.6 kg
[~2020-11-25 10:31] MED LIST: ASPI-886 PO; BYSTOLIC5 MG PO; METO25TA4 PO
[2020-11-25 11:37] LABS: BASO # 0.1 x10^3/uL (0.0-0.2); BASO % 2 % (0-3); EOS # 0.1 x10^3/uL (0.0-0.7); EOS % 2 % (0-3); HEMATOCRIT 44.4 % (36.0-47.0); HEMOGLOBIN 15.1 g/dL (12.0-15.5); LYMPH # 1.4 x10^3/uL (1.0-4.8); LYMPH % 37 % (24-48); MEAN CORPUSCULAR HEMOGLOBIN 33 pg (25-35); MEAN CORPUSCULAR HGB CONC 34 g/dL (31-37); MEAN CORPUSCULAR VOLUME 96 fL (79-100); MONO # 0.3 x10^3/uL (0.0-1.1); MONO % 8 % (0-9); NEUT # 1.9 x10^3/uL (1.8-7.7); NEUT % 51 % (31-73); PLATELET COUNT 173 x10^3/uL (140-400); RED BLOOD COUNT 4.61 x10^6/uL (3.50-5.40); RED CELL DISTRIBUTION WIDTH 13.3 % (11.5-14.5); WHITE BLOOD COUNT 3.7 x10^3/uL (4.0-11.0)
--- NOTE | 2020-11-25 11:47 | PHYS DOC ---
Past Medical History Past Medical History: A-Fib, Asthma Past Surgical History: Appendectomy, Tubal ligation Smoking Status: Never Smoker Alcohol Use: Occasionally General Adult EDM: Chief Complaint: NEURO SYMPTOMS/DEFICITS HPI: HPI: Patient is a 50 year old female who presents with states Tuesday and Tuesday she is very sleepy and noticed that she was started on Tuesday to have weakness on the right side of her body and numbness. She states that she felt like she that side of her body was heavy and like she was dragging it. Patient states she is not on any blood thinners but she does have a history of A. fib. She states that she knows that she goes in and out of A. fib because she will get palpitations. Patient states that her sisters have had strokes in the past. She denies any hormone use, smoking or heart attacks. She states she does have a right sided headache that is more in the temporal area and the side of the head that goes into the right ear. She is not a smoker but does state that she has asthma and she does have shortness of air but states is not any more than us ual. She also has had an appendectomy and a tubal ligation in the past. She states a couple years ago she was on blood thinners but went off the blood thinners because her given her nosebleeds. She currently rates her pain an 8 out of 10 aching. Review of Systems: Review of Systems: Constitutional: Denies fever or chills. [] Eyes: Denies change in visual acuity. [] HENT: Denies nasal congestion or sore throat. + Right-sided facial numbness [] Respiratory: Denies cough. + shortness of breath. [] Cardiovascular: Denies chest pain or edema. [] GI: Denies abdominal pain, nausea, vomiting, bloody stools or diarrhea. [] : Denies dysuria. [] Musculoskeletal: Denies back pain or joint pain. + Generalized right-sided weakness [] Integument: Denies rash. [] Neurologic: + Right-sided headache, + right-sided focal weakness or sensory changes. + Right-sided numbness [] Endocrine: Denies polyuria or polydipsia. [] Lymphatic: Denies swollen glands. [] Psychiatric: Denies depression or anxiety. [] Heart Score: Risk Factors: Risk Factors: DM, Current or recent (<one month) smoker, HTN, HLP, family history of CAD, obesity. Risk Scores: Score 0 - 3: 2.5% MACE over next 6 weeks - Discharge Home Score 4 - 6: 20.3% MACE over next 6 weeks - Admit for Clinical Observation Score 7 - 10: 72.7% MACE over next 6 weeks - Early Invasive Strategies Allergies: Allergies: Allergies Coded Allergies Type Severity Reaction Last Updated Verified No Known Drug Allergies 11/25/20 No Physical Exam: PE: Constitutional: Well developed, well nourished, no acute distress, non-toxic appearance. [] HENT: Normocephalic, atraumatic, bilateral external ears normal, oropharynx moist, no oral exudates, nose normal. Right facial lip flattening when trying to smile [] Eyes: PERRLA, EOMI, conjunctiva normal, no discharge. [] Neck: Normal range of motion, no tenderness, supple, no stridor. [] Cardiovascular:Heart rate regular rhythm, no murmur [] Lungs & Thorax: Bilateral breath sounds clear to auscultation [] Abdomen: Bowel sounds normal, soft, no tenderness, no masses, no pulsatile masses. [] Skin: Warm, dry, no erythema, no rash. [] Back: No tenderness, no CVA tenderness. [] Extremities: No tenderness, no cyanosis, no clubbing, right sided ROM not intact, no edema. [] Neurologic: Alert and oriented X 3, normal motor function, right-sided numbness sensory function, right-sided generalized focal deficits noted. [] Psychologic: Affect normal, judgement normal, mood normal. [] Current Patient Data: Labs: Laboratory Tests Test 11/25/20 11:01 Glucose (Fingerstick) 97 mg/dL (70-99) Vital Signs: Vital Signs Date Time Temp Pulse Resp B/P (MAP) Pulse Ox O2 Delivery O2 Flow Rate FiO2 11/25/20 10:56 98.3 77 24 137/77 (97) 99 Room Air 98.3 EKG: EK and read by Dr Alegria as Sinus Rhythm and no STEMI Radiology/Procedures: Radiology/Procedures: [] Impression: [facility] [address] [place] [address] IMAGING REPORT Signed PATIENT: JUN LOJA: [id number] : 1970 LOCATION: ER AGE: 50 SEX: F EXAM STATUS: REG ER ORD. PHYSICIAN: DONNA MILLER APRN REASON: nuero sx PROCEDURE: CT HEAD WO CONTRAST INDICATION: Reason: Neurologic sx / Spl. Instructions: / History: COMPARISON: None. TECHNIQUE: Axial CT images obtained through the head without intravenous contrast. One or more of the following individualized dose reduction techniques were utilized for this examination: 1. Automated exposure control; 2. Adjustment of the mA and/or kV according to patient size; 3. Use of iterative reconstruction technique. FINDINGS: No intracranial hemorrhage. No midline shift. Basal cisterns patents. Ventricles and sulci are globally prominent. No acute osseous abnormality. Orbits and paranasal sinuses unremarkable. Scattered foci of low attenuation within the white matter. IMPRESSION: 1. No acute intracranial hemorrhage. 2. Scattered regions of low attenuation within the white matter. Non-specific in nature but frequently secondary to small vessel ischemic disease. 3. Prominence of ventricles and sulci which is frequently secondary to age re lated volume loss. Electronically signed by: Diogo Reyna MD (11/25/2020 11:53 AM) [id number] DICTATED and SIGNED BY: DIOGO REYNA MD DATE: 11/25/20 [id number] [facility] [address] [place] [address] IMAGING REPORT Signed PATIENT: JUN LOJAOUNT: [id number] : 1970 LOCATION: ER AGE: 50 SEX: F EXAM STATUS: REG ER ORD. PHYSICIAN: DONNA MILLER APRN REASON: soa,ALSO CT PROCEDURE: PORTABLE CHEST 1V INDICATION: Reason: soa,ALSO CT / Spl. Instructions: / History: COMPARISON: April 21, 2020 FINDINGS: Single view of chest obtained. Cardiac silhouette is similar to prior. Limited assessment left lung base secondary to overlying cardiac silhouette obscuring. Mild haziness at left lung base. No definite consolidation elsewhere in the lungs. IMPRESSION: * Mild haziness at the left lung base which is at least partially secondary to overlap of structures but superimposed mild atelectasis or infiltrate could have this appearance. Electronically signed by: Diogo Reyna MD (11/25/2020 12:14 PM) [id number] DICTATED and SIGNED BY: DIOGO REYNA MD DATE: 11/25/20 [id number] 0 [facility] [address] [place] [address] IMAGING REPORT Signed PATIENT: JUN LOJA LACCOUNT: [id number] : 1970 LOCATION: SOUTH AGE: 50 SEX: F EXAM STATUS: ADM IN ORD. PHYSICIAN: DONNA MILLER APRN REASON: possible stroke, R loss of hearing, R side numbness omni 300 75 mls /4180 PROCEDURE: CTA HEAD/NECK - CODE STROKE EXAM: CT Angiogram of the Head and Neck INDICATION: Reason: possible stroke, R loss of hearing, R side numbness omni 300 75 mls /4180 / Spl. Instructions: / History: TECHNIQUE: CT images were obtained through the head per standard CTA protocol. Multiplanar and 3D reformatted images were generated from the CT dataset on an independent workstation. All CT scans performed at this facility utilize dose optimization techniques as appropriate to the exam, including the following: Automated exposure control and adjustment of the mA and/or KV according to patient size (this includes techniques or standardized protocols for targeted exams where dose is indication/reason for exam). IV CONTRAST: Administered COMPARISON: Noncontrast head CT 11/25/2020 FINDINGS: CTA HEAD: No high-grade large vessel stenosis, proximal or branch vessel occlusion, aneurysm, or vascular malformation. ANTERIOR CIRCULATION: Anterior and middle cerebral arteries are widely patent. ANTERIOR COMMUNICATING ARTERY: Patent. POSTERIOR COMMUNICATING ARTERIES: Poorly visualized left posterior communicating artery, likely hypoplastic. Patent on the right. POSTERIOR CIRCULATION: Vertebral and basilar arteries are widely patent. Bilateral posterior inferior cerebellar arteries (PICAs), anterior inferior cerebellar arteries (AICAs), and superior cerebellar arteries (SCAs) are visualized and patent. Bilateral posterior cerebral arteries are patent. OTHER: No abnormal brain parenchymal enhancement. The paranasal sinuses, masto id air cells, and tympanic cavities are clear. NECK CTA: AORTA: 3 vessel configuration of arch. No dissection or acute aortic injury. No hemodynamically significant great vessel origin stenosis. RIGHT CAROTID: Common and internal carotid arteries are widely patent, without evidence of flow limiting stenosis or dissection. LEFT CAROTID: Common and internal carotid arteries are widely patent, without evidence of flow limiting stenosis or dissection. VERTEBRAL ARTERIES: Codominant. No evidence of dissection or flow limiting stenosis. SUBCLAVIAN ARTERIES:Subclavian arteries are patent without stenosis. SOFT TISSUES: Scattered paranasal sinus mucosal thickening. Lung apices are clear. Where applicable, evaluation of ICA stenosis was performed using NASCET criteria, where the site of greatest stenosis is compared to the diameter of the ICA distal to the carotid bulb. IMPRESSION: Normal CTA of the head and neck. FOR INTERNAL CODING PURPOSES Critical result: Findings discussed with Donna Mason NP at 11/25/2020 1:37 PM. RESULT CODE: (C) Electronically signed by: Sean Fitzgerald MD (11/25/2020 1:39 PM) [id number] DICTATED and SIGNED BY: SEAN FITZGERALD MD DATE: 11/25/20 [id number] 0 Course & Med Decision Making: Course & Med Decision Making Pertinent Labs and Imaging studies reviewed. (See chart for details) Patient is NIH is a 8. Patient can feel me touch her as in the pressure of my hand on her leg and on her arm and on the side of her face but otherwise its numb. She cannot feel pain. Patients right side is weaker than the left side. Patient does have some resistance against gravity with her limbs but it quickly falls. When doing the NIH scale and asked her to tell me what was in the pitcher she says " chaos" and " there is a woman". When asking the patient questions she does have a delay before she answers as if she is having to think of what she needs to say or cannot get the words out correctly. I can still understand her. There is no slurring. Her EKG shows a sinus rhythm. When she smiles there is slight flattening of the lip on the right side. She can raise her eyebrows equally. She follows all my commands. She does answer questions appropriately. She is alert and oriented x4. She states she is very imbalanced when walking which is new for her. She denies chest pain, fever, abdominal pain, dizziness, nausea, vomiting, diarrhea, syncope, fall. She denies any vision changes. [id number] is intact. I spoke to Dr Farah who states to do a CTA head and neck. Patient admitted to hospitalists. [] Hitesh Disclaimer: Hitesh Disclaimer: This electronic medical record was generated, in whole or in part, using a voice recognition dictation system. NIHSS Stroke Scale NIH Stroke Scale: NIH Stroke Scale Response (Comments) Value Level of Consciousness: 0 Alert/Responsive 0 LOC Questions: 0 Answers both correctly 0 LOC Commands: 0 Performs both tasks 0 Best Gaze: 0 Normal 0 Visual: 0 No visual loss 0 Facial Palsy: 1 Minor paralysis 1 Motor - Left Arm 0 No drift 0 Motor - Right Arm 2 Some effort 2 Motor - Left Leg 0 No drift 0 Motor: Right Leg 2 Some effort 2 Limb Ataxia: 0 Absent 0 Sensory: 1 Mid to moderate loss 1 Best Language: 1 Mild to mod aphasia 1 Dysathria: 1 Mild to moderate 1 Extinction and Inattention: 0 Normal 0 Total 8 Departure Departure Impression: Primary Impression: Right sided weakness Additional Impressions: Numbness on right side Headache Qualified Codes: R51.9 - Headache, unspecified Disposition: 09 ADMITTED INPT THIS HOSP Admitting Physician: BENJA Condition: STABLE Referrals: UNKNOWN PCP NAME (PCP) DONNA MILLER APRN Nov 25, 2020 11:47
[2020-11-25 11:49] LABS: PROTHROMBIN TIME PATIENT 13.9 SEC (11.7-14.0)
--- NOTE | 2020-11-25 11:55 | RAD ---
INDICATION: Reason: Neurologic sx / Spl. Instructions: / History: COMPARISON: None. TECHNIQUE: Axial CT images obtained through the head without intravenous contrast. One or more of the following individualized dose reduction techniques were utilized for this examinat ion: 1. Automated exposure control; 2. Adjustment of the mA and/or kV according to patient size; 3 . Use of iterative reconstruction technique. FINDINGS: No intracranial hemorrhage. No midline shift. Basal cisterns patents. Ventricles and sulci are globally prominent. No acute osseous abnormality. Orbits and paranasal sinuses unremarkable. Scattered foci of low attenuation within the white matter. IMPRESSION: 1. No acute intracranial hemorrhage. 2. Scattered regions of low attenuation within the white matter. Non-specific in nature but frequen tly secondary to small vessel ischemic disease. 3. Prominence of ventricles and sulci which is frequently secondary to age related volume loss. Electronically signed by: Eduardo Henry MD (11/25/2020 11:53 AM) [id number]
[2020-11-25 12:04] LABS: CALCIUM 8.6 mg/dL (8.5-10.1); CREATININE 0.6 mg/dL (0.6-1.0); GFR 105.8; POTASSIUM 3.6 mmol/L (3.5-5.1)
[2020-11-25 12:08] LABS: ALBUMIN 4.1 g/dL (3.4-5.0); ALBUMIN/GLOBULIN RATIO 1.2 (1.0-1.7); MAGNESIUM 1.9 mg/dL (1.8-2.4); TOTAL BILIRUBIN 0.7 mg/dL (0.2-1.0); TOTAL PROTEIN 7.5 g/dL (6.4-8.2)
--- NOTE | 2020-11-25 12:16 | RAD ---
INDICATION: Reason: soa,ALSO CT / Spl. Instructions: / History: COMPARISON: April 21, 2020 FINDINGS: Single view of chest obtained. Cardiac silhouette is similar to prior. Limited assessment left lung base secondary to overlying card iac silhouette obscuring. Mild haziness at left lung base. No definite consolidation elsewhere in the lungs. IMPRESSION: * Mild haziness at the left lung base which is at least partially secondary to overlap of structures but superimposed mild atelectasis or infiltrate could have this appearance. Electronically signed by: Eduardo Henry MD (11/25/2020 12:14 PM) [id number]
[2020-11-25] MEDS ORDERED: fentaNYL PF VIAL 100 MCG/2 ML VIAL IVP ONE (12:30)
--- NOTE | 2020-11-25 12:48 | EKG ---
[facility] [address] [place] [address] Test Date: 2020-11-25 Test Time: 11:08:56 Pat Name: JUN LOJA Department: Room: Gender: F Ditcher Operator: : 1970 Requested By: DELFINO MILLER Order Number: [id number] Reading MD: Measurements Intervals [place] Rate: 76 P: 31 OR: 150 QRS: -26 QRSD: 82 T: 0 QT: 398 QTc: 452 Interpretive Statements SINUS RHYTHM LEFTWARD AXIS R-S TRANSITION ZONE IN V LEADS DISPLACED TO THE LEFT NO SPECIFIC ECG ABNORMALITIES RI6.01 No previous ECG available for comparison
[2020-11-25] MEDS ORDERED: IOHEXOL 300 MG/ML 100ML VIAL. IV ONE (13:00)
[2020-11-25] MEDS ORDERED: CONTRAST GIVEN. MC PRN (13:00)
[2020-11-25] MEDS ORDERED: fentaNYL PF VIAL 100 MCG/2 ML VIAL IV PRN (13:00)
--- NOTE | 2020-11-25 13:41 | RAD ---
EXAM: CT Angiogram of the Head and Neck INDICATION: Reason: possible stroke, R loss of hearing, R side numbness omni 300 75 mls /4180 / Spl. Instructions: / History: TECHNIQUE: CT images were obtained through the head per standard CTA protocol. Multiplanar and 3D ref ormatted images were generated from the CT dataset on an independent workstation. All CT scans perfor med at this facility utilize dose optimization techniques as appropriate to the exam, including the f ollowing: Automated exposure control and adjustment of the mA and/or KV according to patient size (th is includes techniques or standardized protocols for targeted exams where dose is indication/reason f or exam). IV CONTRAST: Administered COMPARISON: Noncontrast head CT 11/25/2020 FINDINGS: CTA HEAD: No high-grade large vessel stenosis, proximal or branch vessel occlusion, aneurysm, or vascular malfo rmation. ANTERIOR CIRCULATION: Anterior and middle cerebral arteries are widely patent. ANTERIOR COMMUNICATING ARTERY: Patent. POSTERIOR COMMUNICATING ARTERIES: Poorly visualized left posterior communicating artery, likely hypo plastic. Patent on the right. POSTERIOR CIRCULATION: Vertebral and basilar arteries are widely patent. Bilateral posterior inferio r cerebellar arteries (PICAs), anterior inferior cerebellar arteries (AICAs), and superior cerebellar arteries (SCAs) are visualized and patent. Bilateral posterior cerebral arteries are patent. OTHER: No abnormal brain parenchymal enhancement. The paranasal sinuses, mastoid air cells, and tymp anic cavities are clear. NECK CTA: AORTA: 3 vessel configuration of arch. No dissection or acute aortic injury. No hemodynamically sign ificant great vessel origin stenosis. RIGHT CAROTID: Common and internal carotid arteries are widely patent, without evidence of flow limi ting stenosis or dissection. LEFT CAROTID: Common and internal carotid arteries are widely patent, without evidence of flow limit ing stenosis or dissection. VERTEBRAL ARTERIES: Codominant. No evidence of dissection or flow limiting stenosis. SUBCLAVIAN ARTERIES:Subclavian arteries are patent without stenosis. SOFT TISSUES: Scattered paranasal sinus mucosal thickening. Lung apices are clear. Where applicable, evaluation of ICA stenosis was performed using NASCET criteria, where the site of g reatest stenosis is compared to the diameter of the ICA distal to the carotid bulb. IMPRESSION: Normal CTA of the head and neck. FOR INTERNAL CODING PURPOSES Critical result: Findings discussed with Donna Mason NP at 11/25/2020 1:37 PM. RESULT CODE: (C) Electronically signed by: Morelia Fitzgerald MD (11/25/2020 1:39 PM) [id number]
[2020-11-25] MEDS ORDERED: ASPIRIN RECTAL 300 MG SUPP. PR PRN (15:00)
[2020-11-25] MEDS ORDERED: diazePAM 5 MG TABLET PO ONE (15:30)
[2020-11-25 15:35] VITALS: BP 158/76
--- NOTE | 2020-11-25 15:46 | PDOC2 ---
NEUROLOGY CONSULT Date of Service DOS: DATE: 11/25/20 TIME: 15:39 Reason for Consult Reason for Consult: Stroke Referring Physician Referring Physician: Dr. Tatum Source Source: Chart review, Patient History of Present Illness History of Present Illness The patient is a 50-year-old right-handed female who Tuesday and Tuesday noticed some dizziness, sleepiness, right-sided weakness along with numbness. She has never had a stroke before. She has a history of atrial fibrillation and sees a cap sizer at [facility]. She says that she occasionally still feels palpitations and believes that she is going in and out of atrial fibrillation. She is on Bystolic. There is no history of seizure or head injury. She has had a right-sided headache. Past Medical History Cardiovascular: AFIB, HTN Psych: Anxiety Past Surgical History Past Surgical History: No pertinent history Family History Family History: CVA Social History Social History , unemployed, just about to start a new job, no tobacco, alcohol, street drug Current Medications Current Medications Current Medications Fentanyl Citrate (Fentanyl 2ml Vial) 50 mcg 1X ONCE IVP Last administered on 11/25/20at 13:17; Start 11/25/20 at 12:30; Stop 11/25/20 at 12:31; Status DC Iohexol (Omnipaque 300 Mg/ml) 75 ml 1X ONCE IV Last administered on 11/25/20at 13:21; Start 11/25/20 at 13:00; Stop 11/25/20 at 13:01; Status DC Info (CONTRAST GIVEN -- Rx MONITORING) 1 each PRN DAILY PRN MC SEE COMMENTS; Start 11/25/20 at 13:00; Stop 11/27/20 at 12:59 Fentanyl Citrate (Fentanyl 2ml Vial) 50 mcg PRN Q1HR PRN IV PAIN; Start 11/25/20 at 13:00; Stop 11/26/20 at 12:59 Acetaminophen (Tylenol) 650 mg PRN Q6HRS PRN PO MILD PAIN / TEMP > 100.3'F; Start 11/25/20 at 15:00 Aspirin (Ecotrin) 325 mg DAILYWBKFT PO ; Start 11/26/20 at 08:00 Aspirin (Aspirin Rectal Supp) 300 mg PRN DAILY PRN [place] IF UNABLE TO TAKE PO; Start 11/25/20 at 15:00 Diazepam (Valium) 10 mg 1X ONCE PO ; Start 11/25/20 at 15:30; Stop 11/25/20 at 15:31; Status DC Active Scripts Active Aspirin Ec (Aspirin) 81 Mg Tablet. 81 Mg PO DAILYWBKFT 30 Days Metoprolol Tartrate 25 Mg Tablet 25 Mg PO BID 30 Days Allergies Allergies: Coded Allergies: No Known Drug Allergies (Unverified , 11/25/20) ROS Review of System Negative for fever, chills, weight loss, shortness of breath, chest pain, indigestion, hematochezia, melena, and dysuria. Full 14-point review of systems is negative. Physical Exam Physical Examination General: Well-developed, well-nourished white female in no acute distress HEENT: Normocephalic andatraumatic. Temporal arteriespulsatile and nontender. Neck: Supple without bruit, no meningismus Musculoskeletal: Stability:see neurologic. Gait exam:see neurologic. Tone:see neurologic.Strength:see neurologic. Neurological: Mental Status:intact, orientation, memory, attention span/concentration, language, fund of knowledge normal. Cranial Nerves:Pupils equal and reactive to light, extraocular movements areintact, visual godoy are full to confrontation. Facial sensation is normal. There is no facial asymmetry. Vestibulo-ocular reflex is intact. Palate elevates and tongue protrudes in midline. All other cranial related problems are negative except as mentioned before.Reflexes:2+ and symmetric with flexor plantar responses. Motor:5-/5 strength on right, with pronator drift, with normal tone and bulk. Coordination:Finger-nose finger and ssmw-ev-ecbs testing are normal. Rapid alternating movements and fine finger movements are intact. Gait:Not tested. Sensory:Right sensory loss. Vitals VITALS Vital Signs Date Time Temp Pulse Resp B/P (MAP) Pulse Ox O2 Delivery O2 Flow Rate FiO2 11/25/20 14:11 80 23 145/68 (93) 97 Room Air 11/25/20 10:56 98.3 98.3 Labs Labs Laboratory Tests Test 11/25/20 11:01 11/25/20 11:05 Glucose (Fingerstick) 97 mg/dL (70-99) White Blood Count 3.7 x10^3/uL (4.0-11.0) Red Blood Count 4.61 x10^6/uL (3.50-5.40) Hemoglobin 15.1 g/dL (12.0-15.5) Hematocrit 44.4 % (36.0-47.0) Mean Corpuscular Volume 96 fL (79-100) Mean Corpuscular Hemoglobin 33 pg (25-35) Mean Corpuscular Hemoglobin Concent 34 g/dL (31-37) Red Cell Distribution Width 13.3 % (11.5-14.5) Platelet Count 173 x10^3/uL (140-400) Neutrophils (%) (Auto) 51 % (31-73) Lymphocytes (%) (Auto) 37 % (24-48) Monocytes (%) (Auto) 8 % (0-9) Eosinophils (%) (Auto) 2 % (0-3) Basophils (%) (Auto) 2 % (0-3) Neutrophils # (Auto) 1.9 x10^3/uL (1.8-7.7) Lymphocytes # (Auto) 1.4 x10^3/uL (1.0-4.8) Monocytes # (Auto) 0.3 x10^3/uL (0.0-1.1) Eosinophils # (Auto) 0.1 x10^3/uL (0.0-0.7) Basophils # (Auto) 0.1 x10^3/uL (0.0-0.2) Prothrombin Time 13.9 SEC (11.7-14.0) Prothromb Time International Ratio 1.1 (0.8-1.1) Activated Partial Thromboplast Time 30 SEC (24-38) Sodium Level 145 mmol/L (136-145) Potassium Level 3.6 mmol/L (3.5-5.1) Chloride Level 105 mmol/L (98-107) Carbon Dioxide Level 23 mmol/L (21-32) Anion Gap 17 (6-14) Blood Urea Nitrogen 10 mg/dL (7-20) Creatinine 0.6 mg/dL (0.6-1.0) Estimated GFR (Cockcroft-Gault) 105.8 BUN/Creatinine Ratio 17 (6-20) Glucose Level 93 mg/dL (70-99) Calcium Level 8.6 mg/dL (8.5-10.1) Magnesium Level 1.9 mg/dL (1.8-2.4) Total Bilirubin 0.7 mg/dL (0.2-1.0) Aspartate Amino Transf (AST/SGOT) 109 U/L (15-37) Alanine Aminotransferase (ALT/SGPT) 76 U/L (14-59) Alkaline Phosphatase 163 U/L (46-116) Troponin I Quantitative < 0.017 ng/mL (0.000-0.055) AD-Jcy-J-Type Natriuretic Peptide 49 pg/mL (0-124) Total Protein 7.5 g/dL (6.4-8.2) Albumin 4.1 g/dL (3.4-5.0) Albumin/Globulin Ratio 1.2 (1.0-1.7) Laboratory Tests Test 11/25/20 11:01 11/25/20 11:05 Glucose (Fingerstick) 97 mg/dL (70-99) White Blood Count 3.7 x10^3/uL (4.0-11.0) Red Blood Count 4.61 x10^6/uL (3.50-5.40) Hemoglobin 15.1 g/dL (12.0-15.5) Hematocrit 44.4 % (36.0-47.0) Mean Corpuscular Volume 96 fL (79-100) Mean Corpuscular Hemoglobin 33 pg (25-35) Mean Corpuscular Hemoglobin Concent 34 g/dL (31-37) Red Cell Distribution Width 13.3 % (11.5-14.5) Platelet Count 173 x10^3/uL (140-400) Neutrophils (%) (Auto) 51 % (31-73) Lymphocytes (%) (Auto) 37 % (24-48) Monocytes (%) (Auto) 8 % (0-9) Eosinophils (%) (Auto) 2 % (0-3) Basophils (%) (Auto) 2 % (0-3) Neutrophils # (Auto) 1.9 x10^3/uL (1.8-7.7) Lymphocytes # (Auto) 1.4 x10^3/uL (1.0-4.8) Monocytes # (Auto) 0.3 x10^3/uL (0.0-1.1) Eosinophils # (Auto) 0.1 x10^3/uL (0.0-0.7) Basophils # (Auto) 0.1 x10^3/uL (0.0-0.2) Prothrombin Time 13.9 SEC (11.7-14.0) Prothromb Time International Ratio 1.1 (0.8-1.1) Activated Partial Thromboplast Time 30 SEC (24-38) Sodium Level 145 mmol/L (136-145) Potassium Level 3.6 mmol/L (3.5-5.1) Chloride Level 105 mmol/L (98-107) Carbon Dioxide Level 23 mmol/L (21-32) Anion Gap 17 (6-14) Blood Urea Nitrogen 10 mg/dL (7-20) Creatinine 0.6 mg/dL (0.6-1.0) Estimated GFR (Cockcroft-Gault) 105.8 BUN/Creatinine Ratio 17 (6-20) Glucose Level 93 mg/dL (70-99) Calcium Level 8.6 mg/dL (8.5-10.1) Magnesium Level 1.9 mg/dL (1.8-2.4) Total Bilirubin 0.7 mg/dL (0.2-1.0) Aspartate Amino Transf (AST/SGOT) 109 U/L (15-37) Alanine Aminotransferase (ALT/SGPT) 76 U/L (14-59) Alkaline Phosphatase 163 U/L (46-116) Troponin I Quantitative < 0.017 ng/mL (0.000-0.055) OT-Dpg-J-Type Natriuretic Peptide 49 pg/mL (0-124) Total Protein 7.5 g/dL (6.4-8.2) Albumin 4.1 g/dL (3.4-5.0) Albumin/Globulin Ratio 1.2 (1.0-1.7) Images Images CT head: No intracranial hemorrhage. No midline shift. Basal cisterns patents. Ventricles and sulci are globally prominent. No acute osseous abnormality. Orbits and paranasal sinuses unremarkable. Scattered foci of low attenuation within the white matter. IMPRESSION: 1. No acute intracranial hemorrhage. 2. Scattered regions of low attenuation within the white matter. Non-specific in nature but frequently secondary to small vessel ischemic disease. 3. Prominence of ventricles and sulci which is frequently secondary to age related volume loss. CT Angiogram of the Head and Neck INDICATION: Reason: possible stroke, R loss of hearing, R side numbness omni 300 75 mls /4180 / Spl. Instructions: / History: TECHNIQUE: CT images were obtained through the head per standard CTA protocol. Multiplanar and 3D reformatted images were generated from the CT dataset on an independent workstation. All CT scans performed at this facility utilize dose optimization techniques as appropriate to the exam, including the following: Automated exposure control and adjustment of the mA and/or KV according to pa tient size (this includes techniques or standardized protocols for targeted exams where dose is indication/reason for exam). IV CONTRAST: Administered COMPARISON: Noncontrast head CT 11/25/2020 FINDINGS: CTA HEAD: No high-grade large vessel stenosis, proximal or branch vessel occlusion, aneurysm, or vascular malformation. ANTERIOR CIRCULATION: Anterior and middle cerebral arteries are widely patent. ANTERIOR COMMUNICATING ARTERY: Patent. POSTERIOR COMMUNICATING ARTERIES: Poorly visualized left posterior communicating artery, likely hypoplastic. Patent on the right. POSTERIOR CIRCULATION: Vertebral and basilar arteries are widely patent. Bilateral posterior inferior cerebellar arteries (PICAs), anterior inferior cerebellar arteries (AICAs), and superior cerebellar arteries (SCAs) are visualized and patent. Bilateral posterior cerebral arteries are patent. OTHER: No abnormal brain parenchymal enhancement. The paranasal sinuses, mastoid air cells, and tympanic cavities are clear. NECK CTA: AORTA: 3 vessel configuration of arch. No dissection or acute aortic injury. No hemodynamically significant great vessel origin stenosis. RIGHT CAROTID: Common and internal carotid arteries are widely patent, without evidence of flow limiting stenosis or dissection. LEFT CAROTID: Common and internal carotid arteries are widely patent, without evidence of flow limiting stenosis or dissection. VERTEBRAL ARTERIES: Codominant. No evidence of dissection or flow limiting stenosis. SUBCLAVIAN ARTERIES:Subclavian arteries are patent without stenosis. SOFT TISSUES: Scattered paranasal sinus mucosal thickening. Lung apices are clear. Where applicable, evaluation of ICA stenosis was performed using NASCET criteria, where the site of greatest stenosis is compared to the diameter of the ICA distal to the carotid bulb. IMPRESSION: Normal CTA of the head and neck. Assessment/Plan Assessment/Plan Impression: Clinically a small left hemispheric stroke that may not even be from her atrial fibrillation as there is no cortical involvement. This would therefore be a lacunar type stroke. History of atrial fibrillation Headache Recommendations: Aspirin for now She did pass her bedside swallowing test, I told the nurse okay to feed her MRI of the brain, she will need sedation as she has claustrophobia Echocardiogram Check lipids, start statin accordingly Consider cardiology consult depending on her rhythm here in the hospital, otherwise she can follow-up with her cap sizer at [facility] screening Also see stroke orders Thank you for letting me help with the patient's care. YASEMIN URIAS MD Nov 25, 2020 15:46
--- NOTE | 2020-11-25 16:11 | PDOC1 ---
History and Physical Date of Admission Date of Admission DATE: 11/25/20 TIME: 16:11 Identification/Chief Complaint Chief Complaint arm tingling Source Source: Chart review, Patient History of Present Illness History of Present Illness Ms. Leavitt, is a 50 year old female admit with 2 days of arm weakness and tingling, started in her right ear, then right arm, then right leg. she now feels her right limbs are heavy and weaker than normal, she has been able to eat OK. Hx of AFIB, she stopped Eliquis due to nose bleeds, and has not seen ENT or been back to her doctor, but has been taking Bistolic. noted family hx of CVA is sisters. some pain 6/10 Past Medical History Cardiovascular: AFIB, HTN Psych: Anxiety Past Surgical History Past Surgical History: No pertinent history Family History Family History: Coronary Artery Disease Social History Smoke: No ALCOHOL: heavy Drugs: None Current Problem List Problem List Problems Medical Problems: (1) Headache Status: Acute (2) Numbness on right side Status: Acute (3) Right sided weakness Status: Acute Current Medications Current Medications Current Medications Fentanyl Citrate (Fentanyl 2ml Vial) 50 mcg 1X ONCE IVP Last administered on 11/25/20at 13:17; Start 11/25/20 at 12:30; Stop 11/25/20 at 12:31; Status DC Iohexol (Omnipaque 300 Mg/ml) 75 ml 1X ONCE IV Last administered on 11/25/20at 13:21; Start 11/25/20 at 13:00; Stop 11/25/20 at 13:01; Status DC Info (CONTRAST GIVEN -- Rx MONITORING) 1 each PRN DAILY PRN MC SEE COMMENTS; Start 11/25/20 at 13:00; Stop 11/27/20 at 12:59 Fentanyl Citrate (Fentanyl 2ml Vial) 50 mcg PRN Q1HR PRN IV PAIN; Start 11/25/20 at 13:00; Stop 11/26/20 at 12:59 Acetaminophen (Tylenol) 650 mg PRN Q6HRS PRN PO MILD PAIN / TEMP > 100.3'F; Start 11/25/20 at 15:00 Aspirin (Ecotrin) 325 mg DAILYWBKFT PO ; Start 11/25/20 at 16:00 Aspirin (Aspirin Rectal Supp) [address] IF UNABLE TO TAKE PO; Start 11/25/20 at 15:00 Diazepam (Valium) 10 mg 1X ONCE PO ; Start 11/25/20 at 15:30; Stop 11/25/20 at 15:31; Status DC Active Scripts Active Aspirin Ec (Aspirin) 81 Mg Tablet.dr 81 Mg PO DAILYWBKFT 30 Days Metoprolol Tartrate 25 Mg Tablet 25 Mg PO BID 30 Days Allergies Allergies: Coded Allergies: No Known Drug Allergies (Unverified , 11/25/20) ROS General: YES: Fatigue, Malaise; No: Chills, Night Sweats, Appetite, Other PSYCHOLOGICAL ROS: YES: Sleep disturbances; No: Anxiety, Behavioral Disorder, Concentration difficultie, Decreased libido, Depression, Disorientation, Hallucinations, Hostility, Irritablity, Memory difficulties, Mood Swings, Obsessive thoughts, Other Eyes: No Blurry vision, No Decreased vision, No Double vision, No Dry eyes, No Excessive tearing, No Eye Pain, No Itchy Eyes, No Loss of vision, No Photophobia, No Scotomata, No Uses contacts, No Uses glasses, No Other HEENT: No: Heacaches, Visual Changes, Hearing change, Nasal congestion, Nasal discharge, Oral lesions, Sinus pain, Sore Throat, Epistaxis, Sneezing, Snoring, Tinnitus, Vertigo, Vocal changes, Other Respiratory: No: Cough, Hemoptysis, Orthopnea, Pleuritic Pain, Shortness of breath, SOB with excertion, Sputum Changes, Stridor, Tachypnea, Wheezing, Other Cardiovascular: No Chest Pain, No Palpitations, No Orthopnea, No Paroxysmal Noc. Dyspnea, No Edema, No Lt Headedness, No Other Gastrointestinal: Yes Nausea; No Vomiting, No Abdominal Pain, No Diarrhea, No Constipation, No Melena, No Hematochezia, No Other Genitourinary: No Dysuria, No Frequency, No Incontinence, No Hematuria, No Retention, No Discharge, No Urgency, No Pain, No Flank Pain, No Other, No , No , No , No , No , No , No Musculoskeletal: No Gait Disturbance, No Joint Pain, No Joint Stiffness, No Joint Swelling, No Muscle Pain, No Muscular Weakness, No Pain In:, No Swelling In:, No Other Neurological: No Behavorial Changes, No Bowel/Bladder ControlChng, No Confusion, No Dizziness, No Gait Disturbance, No Headaches, No Impaired Coord/balance, No Memory Loss, No Numbness/Tingling, No Seizures, No Speech Problems, No Tremors, No Visual Changes, No Weakness, No Other Skin: No Dry Skin, No Eczema, No Hair Changes, No Lumps, No Mole Changes, No Mottling, No Nail Changes, No Pruritus, No Rash, No Skin Lesion Changes, No Other, No Acne Physical Exam General: Alert, Cooperative, No acute distress HEENT: Atraumatic, PERRLA, Mucous membr. moist/pink Lungs: Clear to auscultation, Normal air movement Heart: S1S2, no gallops Abdomen: Soft Rectal Exam: not examined Extremities: No clubbing, No edema, Normal pulses Skin: No breakdown, No significant lesion Neuro: Normal speech, Normal tone, Sensation intact Psych/Mental Status: Mood NL Vitals Vitals Vital Signs Date Time Temp Pulse Resp B/P (MAP) Pulse Ox O2 Delivery O2 Flow Rate FiO2 11/25/20 15:11 88 21 152/85 (107) 96 Room Air 11/25/20 10:56 98.3 98.3 Labs Labs Laboratory Tests Test 11/25/20 11:01 11/25/20 11:05 Glucose (Fingerstick) 97 mg/dL (70-99) White Blood Count 3.7 x10^3/uL (4.0-11.0) Red Blood Count 4.61 x10^6/uL (3.50-5.40) Hemoglobin 15.1 g/dL (12.0-15.5) Hematocrit 44.4 % (36.0-47.0) Mean Corpuscular Volume 96 fL (79-100) Mean Corpuscular Hemoglobin 33 pg (25-35) Mean Corpuscular Hemoglobin Concent 34 g/dL (31-37) Red Cell Distribution Width 13.3 % (11.5-14.5) Platelet Count 173 x10^3/uL (140-400) Neutrophils (%) (Auto) 51 % (31-73) Lymphocytes (%) (Auto) 37 % (24-48) Monocytes (%) (Auto) 8 % (0-9) Eosinophils (%) (Auto) 2 % (0-3) Basophils (%) (Auto) 2 % (0-3) Neutrophils # (Auto) 1.9 x10^3/uL (1.8-7.7) Lymphocytes # (Auto) 1.4 x10^3/uL (1.0-4.8) Monocytes # (Auto) 0.3 x10^3/uL (0.0-1.1) Eosinophils # (Auto) 0.1 x10^3/uL (0.0-0.7) Basophils # (Auto) 0.1 x10^3/uL (0.0-0.2) Prothrombin Time 13.9 SEC (11.7-14.0) Prothromb Time International Ratio 1.1 (0.8-1.1) Activated Partial Thromboplast Time 30 SEC (24-38) Sodium Level 145 mmol/L (136-145) Potassium Level 3.6 mmol/L (3.5-5.1) Chloride Level 105 mmol/L (98-107) Carbon Dioxide Level 23 mmol/L (21-32) Anion Gap 17 (6-14) Blood Urea Nitrogen 10 mg/dL (7-20) Creatinine 0.6 mg/dL (0.6-1.0) Estimated GFR (Cockcroft-Gault) 105.8 BUN/Creatinine Ratio 17 (6-20) Glucose Level 93 mg/dL (70-99) Calcium Level 8.6 mg/dL (8.5-10.1) Magnesium Level 1.9 mg/dL (1.8-2.4) Total Bilirubin 0.7 mg/dL (0.2-1.0) Aspartate Amino Transf (AST/SGOT) 109 U/L (15-37) Alanine Aminotransferase (ALT/SGPT) 76 U/L (14-59) Alkaline Phosphatase 163 U/L (46-116) Troponin I Quantitative < 0.017 ng/mL (0.000-0.055) MY-Yvh-T-Type Natriuretic Peptide 49 pg/mL (0-124) Total Protein 7.5 g/dL (6.4-8.2) Albumin 4.1 g/dL (3.4-5.0) Albumin/Globulin Ratio 1.2 (1.0-1.7) Laboratory Tests Test 11/25/20 11:01 11/25/20 11:05 Glucose (Fingerstick) 97 mg/dL (70-99) White Blood Count 3.7 x10^3/uL (4.0-11.0) Red Blood Count 4.61 x10^6/uL (3.50-5.40) Hemoglobin 15.1 g/dL (12.0-15.5) Hematocrit 44.4 % (36.0-47.0) Mean Corpuscular Volume 96 fL (79-100) Mean Corpuscular Hemoglobin 33 pg (25-35) Mean Corpuscular Hemoglobin Concent 34 g/dL (31-37) Red Cell Distribution Width 13.3 % (11.5-14.5) Platelet Count 173 x10^3/uL (140-400) Neutrophils (%) (Auto) 51 % (31-73) Lymphocytes (%) (Auto) 37 % (24-48) Monocytes (%) (Auto) 8 % (0-9) Eosinophils (%) (Auto) 2 % (0-3) Basophils (%) (Auto) 2 % (0-3) Neutrophils # (Auto) 1.9 x10^3/uL (1.8-7.7) Lymphocytes # (Auto) 1.4 x10^3/uL (1.0-4.8) Monocytes # (Auto) 0.3 x10^3/uL (0.0-1.1) Eosinophils # (Auto) 0.1 x10^3/uL (0.0-0.7) Basophils # (Auto) 0.1 x10^3/uL (0.0-0.2) Prothrombin Time 13.9 SEC (11.7-14.0) Prothromb Time International Ratio 1.1 (0.8-1.1) Activated Partial Thromboplast Time 30 SEC (24-38) Sodium Level 145 mmol/L (136-145) Potassium Level 3.6 mmol/L (3.5-5.1) Chloride Level 105 mmol/L (98-107) Carbon Dioxide Level 23 mmol/L (21-32) Anion Gap 17 (6-14) Blood Urea Nitrogen 10 mg/dL (7-20) Creatinine 0.6 mg/dL (0.6-1.0) Estimated GFR (Cockcroft-Gault) 105.8 BUN/Creatinine Ratio 17 (6-20) Glucose Level 93 mg/dL (70-99) Calcium Level 8.6 mg/dL (8.5-10.1) Magnesium Level 1.9 mg/dL (1.8-2.4) Total Bilirubin 0.7 mg/dL (0.2-1.0) Aspartate Amino Transf (AST/SGOT) 109 U/L (15-37) Alanine Aminotransferase (ALT/SGPT) 76 U/L (14-59) Alkaline Phosphatase 163 U/L (46-116) Troponin I Quantitative < 0.017 ng/mL (0.000-0.055) QF-Vso-J-Type Natriuretic Peptide 49 pg/mL (0-124) Total Protein 7.5 g/dL (6.4-8.2) Albumin 4.1 g/dL (3.4-5.0) Albumin/Globulin Ratio 1.2 (1.0-1.7) VTE Prophylaxis Ordered VTE Prophylaxis Devices: No VTE Pharmacological Prophylaxi: Yes Assessment/Plan Assessment/Plan Right arm weakness, numbness, prob new CVA, check MRI brain, Neuro consult, asa, lipitor, obese, BMI 32 anxiety, insomnia, ativan now, trazodone HS transaminitis, NOS, will repeat labs, Justifications for Admission Other Justification SARAI LOO MD Nov 25, 2020 16:11
[2020-11-25] MEDS: ASPIRIN ENTERIC COATED 325 MG TABLET.DR. PO SCH (16:22)
[2020-11-25] MEDS: ACETAMINOPHEN 325 MG TABLET. PO PRN ×2 (16:22→20:46)
[2020-11-25] MEDS: ENOXAPARIN 40 MG/0.4 ML SYRINGE. SQ SCH (16:38)
[2020-11-25] MEDS ORDERED: POTASSIUM CHLORIDE 20 MEQ TABLET.ER. PO ONE (17:00)
[2020-11-25] MEDS ORDERED: ONDANSETRON PF 4 MG/2 ML VIAL. IVP PRN (18:30)
[2020-11-25 19:45] VITALS: BP 158/76
[2020-11-25] MEDS ORDERED: BYSTOLIC2.5 MG PO ×2 (19:52)
[2020-11-25] MEDS ORDERED: traZODone 100 MG TABLET. PO SCH (21:00)
[2020-11-25] MEDS ORDERED: ATORVASTATIN CALCIUM 40 MG TABLET. PO SCH (21:00)
[2020-11-25] MEDS ORDERED: METOPROLOL TART IMMED RELEASE 25 MG TABLET. PO SCH (21:00)
[2020-11-25 23:30] VITALS: BP 154/73
[2020-11-26 02:35] VITALS: BP 143/80
--- NOTE | 2020-11-26 06:55 | PDOC ---
[employer] PROGRESS NOTE Date of Service DOS: DATE: 11/26/20 TIME: 06:49 Chief Complaint Chief Complaint Right arm weakness, numbness, prob new CVA, check MRI brain, Neuro consult, asa, lipitor, obese, BMI 32 anxiety, insomnia, ativan now, trazodone HS transaminitis, NOS, will repeat labs, History of Present Illness History of Present Illness Ms. Leavitt, is a 50 year old female admit with 2 days of arm weakness and tingling, started in her right ear, then right arm, then right leg. she now feels her right limbs are heavy and weaker than normal, she has been able to eat OK. Hx of AFIB, she stopped Eliquis due to nose bleeds, and has not seen ENT or been back to her doctor, but has been taking Bistolic. noted family hx of CVA is sisters. some pain 03/05 11/26: Patient seen and evaluated. No acute events overnight, afebrile. Clinical concern for left small hemispheric CVA. Echocardiogram with EF 60-65%, and negative bubble study. MRI pending. Continue aspirin and high-dose statin. PT to evaluate. Anticipate possible discharge today. Vitals/I&O Vitals/I&O: Vital Signs Date Time Temp Pulse Resp B/P (MAP) Pulse Ox O2 Delivery O2 Flow Rate FiO2 11/26/20 02:35 98.8 80 18 143/80 (101) 91 Room Air 98.8 11/26/20 01:26 2.0 I & O 11/25/20 11/25/20 11/26/20 15:00 23:00 07:00 Intake Total 650 ml Output Total 200 ml Balance 450 ml Physical Exam General: Alert, Cooperative, No acute distress Heart: Regular rate Lungs: Clear Abdomen: Soft Extremities: No clubbing, No edema, Normal pulses, Other (Strength 4/5 in bilateral upper and lower right extremities) Skin: No breakdown, No significant lesion Labs Labs: Laboratory Tests Test 11/25/20 11:01 11/25/20 11:05 Glucose (Fingerstick) 97 mg/dL (70-99) White Blood Count 3.7 x10^3/uL (4.0-11.0) Red Blood Count 4.61 x10^6/uL (3.50-5.40) Hemoglobin 15.1 g/dL (12.0-15.5) Hematocrit 44.4 % (36.0-47.0) Mean Corpuscular Volume 96 fL (79-100) Mean Corpuscular Hemoglobin 33 pg (25-35) Mean Corpuscular Hemoglobin Concent 34 g/dL (31-37) Red Cell Distribution Width 13.3 % (11.5-14.5) Platelet Count 173 x10^3/uL (140-400) Neutrophils (%) (Auto) 51 % (31-73) Lymphocytes (%) (Auto) 37 % (24-48) Monocytes (%) (Auto) 8 % (0-9) Eosinophils (%) (Auto) 2 % (0-3) Basophils (%) (Auto) 2 % (0-3) Neutrophils # (Auto) 1.9 x10^3/uL (1.8-7.7) Lymphocytes # (Auto) 1.4 x10^3/uL (1.0-4.8) Monocytes # (Auto) 0.3 x10^3/uL (0.0-1.1) Eosinophils # (Auto) 0.1 x10^3/uL (0.0-0.7) Basophils # (Auto) 0.1 x10^3/uL (0.0-0.2) Prothrombin Time 13.9 SEC (11.7-14.0) Prothromb Time International Ratio 1.1 (0.8-1.1) Activated Partial Thromboplast Time 30 SEC (24-38) Sodium Level 145 mmol/L (136-145) Potassium Level 3.6 mmol/L (3.5-5.1) Chloride Level 105 mmol/L (98-107) Carbon Dioxide Level 23 mmol/L (21-32) Anion Gap 17 (6-14) Blood Urea Nitrogen 10 mg/dL (7-20) Creatinine 0.6 mg/dL (0.6-1.0) Estimated GFR (Cockcroft-Gault) 105.8 BUN/Creatinine Ratio 17 (6-20) Glucose Level 93 mg/dL (70-99) Calcium Level 8.6 mg/dL (8.5-10.1) Magnesium Level 1.9 mg/dL (1.8-2.4) Total Bilirubin 0.7 mg/dL (0.2-1.0) Aspartate Amino Transf (AST/SGOT) 109 U/L (15-37) Alanine Aminotransferase (ALT/SGPT) 76 U/L (14-59) Alkaline Phosphatase 163 U/L (46-116) Troponin I Quantitative < 0.017 ng/mL (0.000-0.055) GV-Tus-C-Type Natriuretic Peptide 49 pg/mL (0-124) Total Protein 7.5 g/dL (6.4-8.2) Albumin 4.1 g/dL (3.4-5.0) Albumin/Globulin Ratio 1.2 (1.0-1.7) Assessment and Plan Assessmemt and Plan Problems Medical Problems: (1) Headache Status: Acute (2) Numbness on right side Status: Acute (3) Right sided weakness Status: Acute Comment Review of Relevant I have reviewed the following items norberto (where applicable) has been applied. Medications: Current Medications Medications (Trade) Dose Ordered Sig/Chuck Route PRN Reason Start Time Stop Time Status Last Admin Dose Admin Fentanyl Citrate (Fentanyl 2ml Vial) 50 mcg 1X ONCE IVP 11/25/20 12:30 11/25/20 12:31 DC 11/25/20 13:17 Iohexol (Omnipaque 300 Mg/ml) 75 ml 1X ONCE IV 11/25/20 13:00 11/25/20 13:01 DC 11/25/20 13:21 Fentanyl Citrate (Fentanyl 2ml Vial) 50 mcg PRN Q1HR PRN IV PAIN 11/25/20 13:00 11/26/20 12:59 11/26/20 00:56 Acetaminophen (Tylenol) 650 mg PRN Q6HRS PRN PO MILD PAIN / TEMP > 100.3'F 11/25/20 15:00 11/25/20 20:46 Aspirin (Ecotrin) 325 mg DAILYWBKFT PO 11/25/20 16:00 11/25/20 16:22 Atorvastatin Calcium (Lipitor) 40 mg QHS PO 11/25/20 21:00 11/25/20 20:46 Potassium Chloride (Klor-Con) 40 meq 1X ONCE PO 11/25/20 17:00 11/25/20 17:01 DC 11/25/20 16:23 Enoxaparin Sodium (Lovenox 40mg Syringe) 40 mg Q24H SQ 11/25/20 17:00 11/25/20 16:38 Lorazepam (Ativan Inj) 1 mg PRN Q4HRS PRN IVP ANXIETY / AGITATION 11/25/20 16:30 11/26/20 00:56 Trazodone HCl (Desyrel) 100 mg QHS PO 11/25/20 21:00 11/25/20 20:46 Ondansetron HCl (Zofran) 4 mg PRN Q6HRS PRN IVP NAUSEA/VOMITING 11/25/20 18:30 11/25/20 18:33 Justifications for Admission Other Justification GILLIAN JACKOSN MD Nov 26, 2020 06:55
[2020-11-26 07:00] VITALS: BP 143/74
[2020-11-26 07:34] LABS: ALBUMIN 3.4 g/dL (3.4-5.0); CREATININE 0.6 mg/dL (0.6-1.0); GFR 105.8; POTASSIUM 3.4 mmol/L (3.5-5.1); TOTAL BILIRUBIN 1.4 mg/dL (0.2-1.0); TOTAL PROTEIN 6.7 g/dL (6.4-8.2)
[2020-11-26 07:38] LABS: CHOLESTEROL/HDL RATIO 1.8
[2020-11-26] MEDS ORDERED: POTASSIUM CHLORIDE 20 MEQ TABLET.ER. PO ONE (08:15)
[2020-11-26] MEDS: ACETAMINOPHEN 325 MG TABLET. PO PRN (09:04)
[2020-11-26] MEDS: ASPIRIN ENTERIC COATED 325 MG TABLET.DR. PO SCH (09:04)
--- NOTE | 2020-11-26 10:04 | PDOC ---
PROGRESS NOTES Date of Service DATE: 11/26/20 TIME: 10:01 Assessment Problems Medical Problems: (1) Headache Status: Acute (2) Numbness on right side Status: Acute (3) Right sided weakness Status: Acute Clinically a small left hemispheric stroke that may not even be from her atrial fibrillation as there is no cortical involvement. This would therefore be a lacunar type stroke. 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 [facility], decision from her regarding whether she needs anticoagulation, probably based on a long-term ambulatory cardiac monitoring Rehabilitation screening Aim for discharge later today Subjective Feels better Objective Vital Signs Date Time Temp Pulse Resp B/P (MAP) Pulse Ox O2 Delivery O2 Flow Rate FiO2 11/26/20 07:00 97.7 70 18 143/74 (97) 93 Room Air 97.7 11/26/20 01:26 2.0 Intake and Output 11/26/20 07:00 Intake Total 650 ml Output Total 200 ml Balance 450 ml Intake Oral 650 ml Output Urine Total 200 ml # Voids 4 PHYSICAL EXAM Physical Exam: Alert. Oriented to time, place and person. PERRL. EOMI. CN: no focal findings. Muscle tone: normal. Muscle strength: 5/5, minimal right pronator drift DTR: 2+ Plantar reflex: Flexor Gait: Normal. Sensory exam: Patchy right-sided sensory loss. No cerebellar signs elicited. Review of Relevant I have reviewed the following items norberto (where applicable) has been applied. Labs Laboratory Tests Test 11/25/20 11:01 11/25/20 11:05 11/26/20 06:40 Glucose (Fingerstick) 97 mg/dL (70-99) White Blood Count 3.7 x10^3/uL (4.0-11.0) Red Blood Count 4.61 x10^6/uL (3.50-5.40) Hemoglobin 15.1 g/dL (12.0-15.5) Hematocrit 44.4 % (36.0-47.0) Mean Corpuscular Volume 96 fL (79-100) Mean Corpuscular Hemoglobin 33 pg (25-35) Mean Corpuscular Hemoglobin Concent 34 g/dL (31-37) Red Cell Distribution Width 13.3 % (11.5-14.5) Platelet Count 173 x10^3/uL (140-400) Neutrophils (%) (Auto) 51 % (31-73) Lymphocytes (%) (Auto) 37 % (24-48) Monocytes (%) (Auto) 8 % (0-9) Eosinophils (%) (Auto) 2 % (0-3) Basophils (%) (Auto) 2 % (0-3) Neutrophils # (Auto) 1.9 x10^3/uL (1.8-7.7) Lymphocytes # (Auto) 1.4 x10^3/uL (1.0-4.8) Monocytes # (Auto) 0.3 x10^3/uL (0.0-1.1) Eosinophils # (Auto) 0.1 x10^3/uL (0.0-0.7) Basophils # (Auto) 0.1 x10^3/uL (0.0-0.2) Prothrombin Time 13.9 SEC (11.7-14.0) Prothromb Time International Ratio 1.1 (0.8-1.1) Activated Partial Thromboplast Time 30 SEC (24-38) Sodium Level 145 mmol/L (136-145) 139 mmol/L (136-145) Potassium Level 3.6 mmol/L (3.5-5.1) 3.4 mmol/L (3.5-5.1) Chloride Level 105 mmol/L (98-107) 101 mmol/L (98-107) Carbon Dioxide Level 23 mmol/L (21-32) 26 mmol/L (21-32) Anion Gap 17 (6-14) 12 (6-14) Blood Urea Nitrogen 10 mg/dL (7-20) 8 mg/dL (7-20) Creatinine 0.6 mg/dL (0.6-1.0) 0.6 mg/dL (0.6-1.0) Estimated GFR (Cockcroft-Gault) 105.8 105.8 BUN/Creatinine Ratio 17 (6-20) 13 (6-20) Glucose Level 93 mg/dL (70-99) 91 mg/dL (70-99) Calcium Level 8.6 mg/dL (8.5-10.1) 8.0 mg/dL (8.5-10.1) Magnesium Level 1.9 mg/dL (1.8-2.4) Total Bilirubin 0.7 mg/dL (0.2-1.0) 1.4 mg/dL (0.2-1.0) Aspartate Amino Transf (AST/SGOT) 109 U/L (15-37) 62 U/L (15-37) Alanine Aminotransferase (ALT/SGPT) 76 U/L (14-59) 54 U/L (14-59) Alkaline Phosphatase 163 U/L (46-116) 135 U/L (46-116) Troponin I Quantitative < 0.017 ng/mL (0.000-0.055) JS-Alv-P-Type Natriuretic Peptide 49 pg/mL (0-124) Total Protein 7.5 g/dL (6.4-8.2) 6.7 g/dL (6.4-8.2) Albumin 4.1 g/dL (3.4-5.0) 3.4 g/dL (3.4-5.0) Albumin/Globulin Ratio 1.2 (1.0-1.7) 1.0 (1.0-1.7) Triglycerides Level 83 mg/dL (0-150) Cholesterol Level 211 mg/dL (0-200) LDL Cholesterol, Calculated 78 mg/dL (0-100) VLDL Cholesterol, Calculated 17 mg/dL (0-40) Non-HDL Cholesterol Calculated 95 mg/dL (0-129) HDL Cholesterol 116 mg/dL (40-60) Cholesterol/HDL Ratio 1.8 Laboratory Tests Test 11/25/20 11:01 11/25/20 11:05 11/26/20 06:40 Glucose (Fingerstick) 97 mg/dL (70-99) White Blood Count 3.7 x10^3/uL (4.0-11.0) Red Blood Count 4.61 x10^6/uL (3.50-5.40) Hemoglobin 15.1 g/dL (12.0-15.5) Hematocrit 44.4 % (36.0-47.0) Mean Corpuscular Volume 96 fL (79-100) Mean Corpuscular Hemoglobin 33 pg (25-35) Mean Corpuscular Hemoglobin Concent 34 g/dL (31-37) Red Cell Distribution Width 13.3 % (11.5-14.5) Platelet Count 173 x10^3/uL (140-400) Neutrophils (%) (Auto) 51 % (31-73) Lymphocytes (%) (Auto) 37 % (24-48) Monocytes (%) (Auto) 8 % (0-9) Eosinophils (%) (Auto) 2 % (0-3) Basophils (%) (Auto) 2 % (0-3) Neutrophils # (Auto) 1.9 x10^3/uL (1.8-7.7) Lymphocytes # (Auto) 1.4 x10^3/uL (1.0-4.8) Monocytes # (Auto) 0.3 x10^3/uL (0.0-1.1) Eosinophils # (Auto) 0.1 x10^3/uL (0.0-0.7) Basophils # (Auto) 0.1 x10^3/uL (0.0-0.2) Prothrombin Time 13.9 SEC (11.7-14.0) Prothromb Time International Ratio 1.1 (0.8-1.1) Activated Partial Thromboplast Time 30 SEC (24-38) Sodium Level 145 mmol/L (136-145) 139 mmol/L (136-145) Potassium Level 3.6 mmol/L (3.5-5.1) 3.4 mmol/L (3.5-5.1) Chloride Level 105 mmol/L (98-107) 101 mmol/L (98-107) Carbon Dioxide Level 23 mmol/L (21-32) 26 mmol/L (21-32) Anion Gap 17 (6-14) 12 (6-14) Blood Urea Nitrogen 10 mg/dL (7-20) 8 mg/dL (7-20) Creatinine 0.6 mg/dL (0.6-1.0) 0.6 mg/dL (0.6-1.0) Estimated GFR (Cockcroft-Gault) 105.8 105.8 BUN/Creatinine Ratio 17 (6-20) 13 (6-20) Glucose Level 93 mg/dL (70-99) 91 mg/dL (70-99) Calcium Level 8.6 mg/dL (8.5-10.1) 8.0 mg/dL (8.5-10.1) Magnesium Level 1.9 mg/dL (1.8-2.4) Total Bilirubin 0.7 mg/dL (0.2-1.0) 1.4 mg/dL (0.2-1.0) Aspartate Amino Transf (AST/SGOT) 109 U/L (15-37) 62 U/L (15-37) Alanine Aminotransferase (ALT/SGPT) 76 U/L (14-59) 54 U/L (14-59) Alkaline Phosphatase 163 U/L (46-116) 135 U/L (46-116) Troponin I Quantitative < 0.017 ng/mL (0.000-0.055) KI-Rwk-P-Type Natriuretic Peptide 49 pg/mL (0-124) Total Protein 7.5 g/dL (6.4-8.2) 6.7 g/dL (6.4-8.2) Albumin 4.1 g/dL (3.4-5.0) 3.4 g/dL (3.4-5.0) Albumin/Globulin Ratio 1.2 (1.0-1.7) 1.0 (1.0-1.7) Triglycerides Level 83 mg/dL (0-150) Cholesterol Level 211 mg/dL (0-200) LDL Cholesterol, Calculated 78 mg/dL (0-100) VLDL Cholesterol, Calculated 17 mg/dL (0-40) Non-HDL Cholesterol Calculated 95 mg/dL (0-129) HDL Cholesterol 116 mg/dL (40-60) Cholesterol/HDL Ratio 1.8 Medications Current Medications Fentanyl Citrate (Fentanyl 2ml Vial) 50 mcg 1X ONCE IVP Last administered on 11/25/20at 13:17; Start 11/25/20 at 12:30; Stop 11/25/20 at 12:31; Status DC Iohexol (Omnipaque 300 Mg/ml) 75 ml 1X ONCE IV Last administered on 11/25/20at 13:21; Start 11/25/20 at 13:00; Stop 11/25/20 at 13:01; Status DC Info (CONTRAST GIVEN -- Rx MONITORING) 1 each PRN DAILY PRN MC SEE COMMENTS; Start 11/25/20 at 13:00; Stop 11/27/20 at 12:59 Fentanyl Citrate (Fentanyl 2ml Vial) 50 mcg PRN Q1HR PRN IV PAIN Last adm inistered on 11/26/20at 00:56; Start 11/25/20 at 13:00; Stop 11/26/20 at 12:59 Acetaminophen (Tylenol) 650 mg PRN Q6HRS PRN PO MILD PAIN / TEMP > 100.3'F Last administered on 11/26/20at 09:04; Start 11/25/20 at 15:00 Aspirin (Ecotrin) 325 mg DAILYWBKFT PO Last administered on 11/26/20at 09:04; Start 11/25/20 at 16:00 Aspirin (Aspirin Rectal Supp) 300 mg PRN DAILY PRN ME IF UNABLE TO TAKE PO; Start 11/25/20 at 15:00 Diazepam (Valium) 10 mg 1X ONCE PO ; Start 11/25/20 at 15:30; Stop 11/25/20 at 15:31; Status DC Atorvastatin Calcium (Lipitor) 40 mg QHS PO Last administered on 11/25/20at 20:46; Start 11/25/20 at 21:00 Potassium Chloride (Klor-Con) 40 meq 1X ONCE PO Last administered on 11/25/20at 16:23; Start 11/25/20 at 17:00; Stop 11/25/20 at 17:01; Status DC Metoprolol Tartrate (Lopressor) 25 mg BID PO ; Start 11/25/20 at 21:00; Stop 11/25/20 at 19:50; Status DC Enoxaparin Sodium (Lovenox Per Pharmacy Prophylaxis Dosing) 1 each PRN DAILY PRN MC SEE COMMENTS; Start 11/25/20 at 16:15 Enoxaparin Sodium (Lovenox 40mg Syringe) 40 mg Q24H SQ Last administered on 11/25/20at 16:38; Start 11/25/20 at 17:00 Lorazepam (Ativan Inj) 1 mg PRN Q4HRS PRN IVP ANXIETY / AGITATION Last administered on 11/26/20at 09:09; Start 11/25/20 at 16:30 Trazodone HCl (Desyrel) 100 mg QHS PO Last administered on 11/25/20at 20:46; Start 11/25/20 at 21:00 Ondansetron HCl (Zofran) 4 mg PRN Q6HRS PRN IVP NAUSEA/VOMITING Last administered on 11/25/20at 18:33; Start 11/25/20 at 18:30 Potassium Chloride (Klor-Con) 40 meq 1X ONCE PO Last administered on 11/26/20at 09:05; Start 11/26/20 at 08:15; Stop 11/26/20 at 08:16; Status DC Active Scripts Active Aspirin Ec (Aspirin) 81 Mg Tablet.dr 81 Mg PO DAILYWBKFT 30 Days Reported Bystolic (Nebivolol) 2.5 Mg Tablet 2.5 Mg PO PRN PRN Bystolic (Nebivolol) 2.5 Mg Tablet 2.5 Mg PO DAILY Vitals/I & O Vital Sign - Last 24 Hours 11/25/20 11/25/20 11/25/20 11/25/20 10:56 12:11 12:41 13:11 Temp 98.3 98.3 Pulse 77 84 86 90 Resp 24 21 25 B/P (MAP) 137/77 (97) 135/66 (89) 137/72 (93) 148/80 (102) Pulse Ox 99 96 96 96 O2 Delivery Room Air Room Air Room Air Room Air 11/25/20 11/25/20 11/25/20 11/25/20 13:17 13:41 14:11 14:41 Pulse 74 80 76 Resp 24 22 23 19 B/P (MAP) 151/73 (99) 145/68 (93) 152/70 (97) Pulse Ox 99 98 97 94 O2 Delivery Room Air Room Air Room Air Room Air 11/25/20 11/25/20 11/25/20 11/25/20 15:11 15:35 16:00 19:45 Temp 98.9 99.4 98.9 99.4 Pulse 88 82 93 Resp 21 18 20 B/P (MAP) 152/85 (107) 158/76 (103) 158/76 (103) Pulse Ox 96 97 92 O2 Delivery Room Air Room Air Room Air Room Air 11/25/20 11/25/20 11/26/20 11/26/20 19:50 23:30 00:56 01:26 Temp 99.5 99.5 Pulse 91 Resp 18 B/P (MAP) 154/73 (100) Pulse Ox 91 94 O2 Delivery Room Air Room Air Nasal Cannula Nasal Cannula O2 Flow Rate 2.0 2.0 11/26/20 11/26/20 02:35 07:00 Temp 98.8 97.7 98.8 97.7 Pulse 80 70 Resp 18 18 B/P (MAP) 143/80 (101) 143/74 (97) Pulse Ox 91 93 O2 Delivery Room Air Room Air Intake and Output 11/25/20 11/25/20 11/26/20 15:00 23:00 07:00 Intake Total 650 ml Output Total 200 ml Balance 450 ml Justicifation of Admission Dx: Justifications for Admission: Justification of Admission Dx: Yes YASEMIN URIAS MD Nov 26, 2020 10:04
[2020-11-26 11:00] VITALS: BP 153/75
--- NOTE | 2020-11-26 11:16 | NUR ---
SS following for discharge planning. SS reviewed pt chart and discussed with pt RN. Pt is from home with spouse and is currently on room air. Neurology consulted. Brain MRI and ECHO ordered. SS will continue to follow for discharge planning.
[2020-11-26] MEDS ORDERED: ASA/APAP/CAFFEINE 250/250/65MG TABLET. PO PRN (12:00)
--- NOTE | 2020-11-26 13:10 | CARD ---
MR#: [id number] Date of Study: 11/26/2020 Ordering Physician: YASEMIN URIAS, Referring Physician: YASEMIN URIAS, Tech: Scarlett Puente [facility] APPROVED REPORT EXAM: Two-dimensional and M-mode echocardiogram with Doppler and color Doppler. Other Information Quality : AverageHR: 72bpm Rhythm : NSR INDICATION CVA/TIA Echo Enhancing Agent Indication: Rule Out Septal Defect Agent/Amount Used: Agitated Saline 6mL RISK FACTORS Hypertension Obesity 2D DIMENSIONS Left Atrium(2D)4.5 (1.6-4.0cm)IVSd1.2 (0.7-1.1cm) Aortic Root(2D)3.8 (2.0-3.7cm)LVDd5.3 (3.9-5.9cm) LVOT Diameter2.0 (1.8-2.4cm)PWd1.2 (0.7-1.1cm) LVDs3.7 (2.5-4.0cm)FS (%) 30.5 % SV77.7 mlLVEF(%)57.5 (>50%) Aortic Valve AoV Peak Hammad.139.0cm/sAoV VTI34.2cm AO Peak GR.7.7mmHgLVOT Peak Hammad.102.6cm/s AO Mean GR.3mmHgAVA (VMAX)2.43cm2 Mitral Valve MV E Thdubdwk22.8cm/sMV DECEL [id number] MV A Qrkwswgw44.2cm/sE/A Ratio0.6 Pulmonary Valve PV Peak Edwtikey582.6cm/s Tricuspid Valve TR P. Sdeplddq086ua/sTR Peak Gr.23mmHg Pulmonary Vein S1 Zggtypqv29.5cm/sD2 Tslbxytr53.3cm/s PVa [id number] LEFT VENTRICLE The left ventricle is normal size. There is mild concentric left ventricular hypertrophy. The left ve ntricular systolic function is normal. Estimated ejection fraction 60-65% There is normal LV segment al wall motion. The left ventricular diastolic function and filling is normal for age. RIGHT VENTRICLE The right ventricle is normal size. There is normal right ventricular wall thickness. The right ventr icular systolic function is normal. ATRIA The left atrium size is normal. The right atrium size is normal. The interatrial septum is intact wit h no evidence for an atrial septal defect or patent foramen ovale as noted on 2-D or Doppler imaging. AORTIC VALVE The aortic valve is normal in structure and function. Doppler and Color Flow revealed no significant aortic regurgitation. There is no significant aortic valvular stenosis. MITRAL VALVE The mitral valve is normal in structure and function. There is no evidence of mitral valve prolapse. There is no mitral valve stenosis. Doppler and Color Flow revealed no mitral valve regurgitation note d. TRICUSPID VALVE The tricuspid valve is normal in structure and function. Doppler and Color Flow revealed mild tricusp id regurgitation. Estimated PAP 21 mmHg. There is no tricuspid valve stenosis. PULMONIC VALVE The pulmonary valve is normal in structure and function. Doppler and Color Flow revealed mild pulmoni c valvular regurgitation. GREAT VESSELS The aortic root is normal in size. The ascending aorta is normal in size. The IVC is normal in size a nd collapses >50% with inspiration. PERICARDIAL EFFUSION There is no evidence of significant pericardial effusion. Critical Notification Critical Value: No <Conclusion> The left ventricular systolic function is normal. Estimated ejection fraction 60-65% There is normal LV segmental wall motion. Mild tricuspid regurgitation. Estimated PAP 21 mmHg. There is no evidence of significant pericardial effusion. Signed by : Korey Lee, Electronically Approved : 11/26/2020 13:09:19
[2020-11-26] MEDS ORDERED: diazePAM 5 MG TABLET PO ONE (14:45)
--- NOTE | 2020-11-26 16:28 | RAD ---
MRI BRAIN WO Date: 11/26/2020 2:32 PM Indication: CVA. RIGHT SIDE HEADACHES, RIGHT SIDE NUMBNESS, VISION DISTURB Comparison: CT 11/25/2020. Technique: Multiplanar multisequence MRI of the brain was performed without intravenous contrast usin g the standard protocol. Findings: No acute infarct. No acute or chronic hemorrhage. The ventricles are normal in size and configuration without hydrocephalus. The scalp and calvarium are normal. The pituitary and sella are normal. No Chiari malformation. The v isualized upper cervical spine is normal. The visualized orbits and globes are normal. Mild maxillary sinus alveolar recess mucosal thickening. The mastoid air cells are clear. Normal flow voids within the vertebral, basilar, and internal carotid arteries indicating patency. IMPRESSION: No acute infarct, acute hemorrhage, mass, or hydrocephalus. Electronically signed by: Zack Kuhn MD (11/26/2020 4:26 PM) [id number]
[2020-11-26] MEDS: ENOXAPARIN 40 MG/0.4 ML SYRINGE. SQ SCH (16:34)
[2020-11-26] MEDS ORDERED: ATOR40TA59 PO (18:18)
--- NOTE | 2020-11-26 19:10 | NUR ---
Discharge Note: JUN LOJA Discharge instructions and discharge home medications reviewed with Patient and a copy given. All questions have been answered and understanding verbalized. The following instructions and handouts were given: Stroke, afib, and cardiac diet. Discontinued iv line and catheter intact. Patient discharged to home with self-care. Discussed need to follow up with [facility] for event monitor and Dr. Farah.
[2020-11-26] MEDS ORDERED: ATORVASTATIN CALCIUM 40 MG TABLET. PO SCH (21:00)
== END 2020-11-26 19:16 | disposition home or self-care (01) ==
LOC: ER 10:31 → INTOOBSV 12:34 → 2 SOUTH 12:34
PROVIDERS: ADMIT Internal Medicine; ATTEND Internal Medicine
DX: R51.9 Headache, unspecified (principal); M62.81 Muscle weakness (generalized); I10 Essential (primary) hypertension; I48.91 Unspecified atrial fibrillation; I63.81 Other cerebral infarction due to occlusion or stenosis of small artery; J45.909 Unspecified asthma, uncomplicated; G47.00 Insomnia, unspecified; E78.5 Hyperlipidemia, unspecified; F41.9 Anxiety disorder, unspecified; R29.708 NIHSS score 8; E66.9 Obesity, unspecified; Z90.49 Acquired absence of other specified parts of digestive tract; Z79.82 Long term (current) use of aspirin; Z68.32 Body mass index [BMI] 32.0-32.9, adult
CPT/HCPCS: 36415; 70450; 70496; 70498; 70551; 71045; 80053; 80061; 82962; 83735; 83880; 84484; 85025; 85610; 85730; 92610; 93005; 93306; 96372; 96374; 96375; 96376; 97161; 97165; 99285; G0378; J1650; J2060; J2405; J3010; Q9967; G0379